=== PATIENT | male | born 1955 | race Caucasian/White ===

== ENCOUNTER 2017-02-20 19:44 | Observation (INO) | payer MEDICAID ==
--- NOTE | 2017-02-20 20:03 | C.PDOC ---
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 Patient denies fever, chills, shortness of breath, nausea, vomiting, upper/ lower extremity numbness/weakness. Time Seen by Provider: 02/20/17 20:02 Chief Complaint (Nursing): Chest Pain History Per: Patient History/Exam Limitations: no limitations Onset/Duration Of Symptoms: Hrs Current Symptoms Are (Timing): Still Present Context: Other Severity: Moderate Pain Scale Rating Of: 4 Quality: Dull, "Pain" Associated Symptoms: denies: Nausea, Dyspnea Modifying Factors: None Exacerbating Factors: None Alleviating Factors: None Recent travel outside of the [place]: No Additional History Per: Patient Past Medical History Reviewed: Historical Data, Nursing Documentation, Vital Signs Vital Signs: Last Vital Signs Temp 98 F 02/20/17 19:57 Pulse 60 02/20/17 21:16 Resp 16 02/20/17 21:16 BP 125/78 02/20/17 21:16 Pulse Ox 99 02/20/17 20:24 - Medical History PMH: Arthritis, Gastritis, HTN, Rheumatoid Arthritis Surgical History: Coronary Stent - [facility] Procedures CORONAR ARTERIOGR-2 CATH (01/30/02) LEFT HEART CARDIAC CATH (01/30/02) LT HEART ANGIOCARDIOGRAM (01/30/02) Family History: States: Unknown Family Hx - Social History Hx Alcohol Use: No Hx Substance Use: No - Immunization History Hx Tetanus Toxoid Vaccination: No Hx Influenza Vaccination: Yes Review Of Systems Constitutional: Positive for: Other (+elevated blood pressure ). Negative for: Fever, Chills Eyes: Negative for: Vision Change Cardiovascular: Positive for: Chest Pain Respiratory: Negative for: Cough, Shortness of Breath Gastrointestinal: Negative for: Nausea, Vomiting, Abdominal Pain Musculoskeletal: Negative for: Shoulder Pain, Arm Pain, Hand Pain Skin: Negative for: Rash, Lesions, Jaundice, Bruising Neurological: Negative for: Weakness, Numbness, Change in Speech, Confusion, Altered Mental Status, Dizziness Psych: Negative for: Anxiety Physical Exam - Physical Exam Appears: Non-toxic, No Acute Distress Skin: Warm, Dry Head: Atraumatic Eye(s): bilateral: Normal Inspection, PERRL, EOMI Oral Mucosa: Moist Neck: Supple Chest: Symmetrical, No Deformity, No Tenderness Cardiovascular: Rhythm Regular, No Murmur Respiratory: No Rales, No Rhonchi, No Wheezing Gastrointestinal/Abdominal: Soft, No Tenderness, Distention, No Guarding, No Rebound, Other (+obese ) Back: No Vertebral Tenderness, No Paraspinal Tenderness Extremity: Normal ROM, No Tenderness, Pedal Edema (trace), No Calf Tenderness, Capillary Refill (less than 2 seconds ), No Deformity, Other (+significant arthritic changes to hands bilaterally ) Extremity: Bilateral: Atraumatic Pulses: Left Dorsalis Pedis: Normal, Right Dorsalis Pedis: Normal Neurological/Psych: Oriented x3, Normal Speech, Normal Cognition Gait: Steady ED Course And Treatment - Laboratory Results Result Diagrams: 02/20/17 21:01 02/20/17 21:01 ECG: Interpreted By Me, Viewed By Me ECG Rhythm: Sinus Rhythm (68), Nonspecific Changes O2 Sat by Pulse Oximetry: 99 (on RA) Pulse Ox Interpretation: Normal - Radiology CXR: Interpreted by Me, Viewed By Me CXR Interpretation: Yes: Cardiomegaly. No: Infiltrates, Fracture Progress Note: cardiac work up, asa Disposition Discussed With DrBrooke: Albaro Drew Comment: accepted the pt on his service and took over the care at 9:35 PM Doctor Will See Patient In The: Hospital Counseled Patient/Family Regarding: Studies Performed, Diagnosis - Disposition Disposition: HOSPITALIZED Disposition Time: 20:03 Condition: FAIR - POA Present On Arrival: None - Clinical Impression Clinical Impression: Chest pain, Renal insufficiency - Scribe Statement The provider has reviewed the documentation as recorded by the Scribe (Mary Kat) Provider Attestation: All medical record entries made by the Scribe were at my direction and personally dictated by me. I have reviewed the chart and agree that the record accurately reflects my personal performance of the history, physical exam, medical decision making, and the department course for this patient. I have also personally directed, reviewed, and agree with the discharge instructions and disposition. Decision To Admit - Pt Status Changed To: Hospital Disposition Of: Observation - . Bed Request Type: Telemetry Patient Diagnosis: Chest pain
[2017-02-20] MEDS ORDERED: Aspirin 325 mg EC Tablets PO STA (20:05)
[2017-02-20] MEDS ORDERED: Aspirin 325 mg EC Tablets PO ONE (20:51)
[2017-02-20 21:06] LABS: BASO % 0.5 % (0.0-2.0); EOS # 0.1 K/uL (0.0-0.7); EOS % 2.2 % (0.0-4.0); HEMATOCRIT 33.8 % (35.0-51.0); LYMPH # 0.9 K/uL (1.0-4.3); LYMPH % 14.6 % (20.0-40.0); MEAN CELL VOLUME 88.2 fL (80.0-94.0); MEAN CORPUSCULAR HEMOGLOBIN 27.8 pg (27.0-31.0); MEAN CORPUSCULAR HGB CONC 31.5 g/dL (33.0-37.0); MEAN PLATELET VOLUME 7.8 fL (7.2-11.7); MONO # 0.6 K/uL (0.0-0.8); MONO % 8.7 % (0.0-10.0); RED CELL DISTRIBUTION WIDTH 18.1 % (11.5-14.5); WHITE BLOOD COUNT 6.4 K/uL (4.8-10.8)
[2017-02-20 21:12] LABS: POTASSIUM 4.7 mmol/L (3.6-5.2)
[2017-02-20 21:14] LABS: BILIRUBIN,TOTAL 0.4 mg/dL (0.2-1.3)
[2017-02-20 21:15] LABS: ALB/GLOB RATIO 1.1 (1.0-2.1); CALCIUM 8.3 mg/dl (8.6-10.4); TOTAL PROTEIN 7.1 g/dL (6.3-8.3)
[2017-02-20 21:27] LABS: TROPONIN I 0.014 ng/mL (0.00-0.120)
[2017-02-20] MEDS ORDERED: Sodium Chloride 0.9% 1,000 ML IV ONE (21:36)
--- NOTE | 2017-02-21 00:34 | CP.PCM.HP ---
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 Patient denies fever, chills, shortness of breath, nausea, vomiting, upper/ lower extremity numbness/weakness. Present on Admission - Present on Admission Any Indicators Present on Admission: No Review of Systems - Review of Systems Systems not reviewed;Unavailable: Acuity of Condition - Constitutional Constitutional: Fatigue, Lethargy, Malaise, Weakness - EENT Eyes: absent: As Per HPI, Blind Spots, Blurred Vision, Change in Vision, Decreased Night Vision, Diplopia, Discharge, Dry Eye, Exophthalmos, Floaters, Irritation, Itchy Eyes, Loss of Peripheral Vision, Pain, Photophobia, Requires Corrective Lenses, Sees Flashes, Spots in Vision, Tunnel Vision, Other Visual Disturbances, Loss of Vision, Other Ears: absent: As Per HPI, Decreased Hearing, Ear Discharge, Ear Pain, Tinnitus, Abnormal Hearing, Disequilibrium, Dizziness, Other Nose/Mouth/Throat: Nasal Congestion. absent: As Per HPI, Epistaxis, Nasal Discharge, Nasal Obstruction, Nasal Trauma, Nose Pain, Post Nasal Drip, Sinus Pain, Sinus Pressure, Bleeding Gums, Change in Voice, Dental Pain, Dry Mouth, Dysphagia, Halitosis, Hoarsness, Lip Swelling, Mouth Lesions, Mouth Pain, Odynophagia, Sore Throat, Throat Swelling, Tongue Swelling, Facial Pain, Neck Pain, Neck Mass, Other - Musculoskeletal Musculoskeletal: Abnormal Gait, Back Pain, Myalgias, Stiffness - Integumentary Integumentary: absent: As Per HPI, Acne, Alopecia, Bleeding Lesions, Change in Hair, Change in Nails, Change in Pigmentation, Changing Lesions, Dry Skin, Erythema, Furuncle, Hirsutism, Lesions, New Lesions, Non-Healing Lesions, Photosensitivity, Pruritus, Rash, Skin Pain, Skin Ulcer, Sores, Striae, Swelling , Unusual Bruising, Wounds, Jaundice, Other Past Patient History - Past Social History Smoking Status: Never Smoked - CARDIAC Hx Hypertension: Yes - ENDOCRINE/METABOLIC Hx Endocrine Disorders: Yes Hx Diabetes Mellitus Type 2: Yes - MUSCULOSKELETAL/RHEUMATOLOGICAL Hx Arthritis: Yes Hx Rheumatoid Arthritis: Yes - GASTROINTESTINAL Hx Gastritis: Yes - PSYCHIATRIC Hx Substance Use: No - SURGICAL HISTORY Hx Coronary Stent: Yes - ANESTHESIA Hx Anesthesia: Yes Hx Anesthesia Reactions: No Meds Home Medications: Home Medication List Medication Instructions Recorded Confirmed Type Methadone 38 mg PO DAILY tab 02/22/17 Rx Allergies/Adverse Reactions: Allergies Allergy/AdvReac Type Severity Reaction Status Date / Time No Known Allergies Allergy Verified 02/20/17 20:00 Physical Exam - Constitutional Appears: No Acute Distress, Agitated, Chronically Ill - Head Exam Head Exam: ATRAUMATIC, NORMAL INSPECTION, NORMOCEPHALIC - Eye Exam Eye Exam: Conjunctival injection - ENT Exam ENT Exam: Mucous Membranes Dry - Neck Exam Neck exam: Positive for: Normal Inspection - Respiratory Exam Respiratory Exam: Clear to Auscultation Bilateral, NORMAL BREATHING PATTERN - Cardiovascular Exam Cardiovascular Exam: REGULAR RHYTHM - GI/Abdominal Exam GI & Abdominal Exam: Normal Bowel Sounds, Soft. absent: Tenderness - Extremities Exam Additional comments: extensive joint abnormalities Results - Vital Signs Recent Vital Signs: Last Vital Signs Temp 98 F 02/20/17 19:57 Pulse 60 02/20/17 22:07 Resp 16 02/20/17 22:07 BP 133/81 02/20/17 22:07 Pulse Ox 99 02/20/17 21:35 - Labs Result Diagrams: 02/20/17 21:01 02/22/17 06:18 Labs: Laboratory Results - last 24 hr 02/21/17 00:02 POC Glucose (mg/dL) 89 Assessment & Plan (1) Atypical chest pain Status: Acute Comment: rule out ND. pt has previous multiple hospitalizations with same complain (2) Heroin abuse Status: Acute (3) Rheumatoid arthritis flare Status: Acute
[2017-02-21 00:54] LABS: RBC URINE 1 /hpf (0-3); URINE BILIRUBIN NEGATIVE (NEGATIVE); URINE BLOOD NEGATIVE (NEGATIVE); URINE COLOR Yellow (YELLOW); URINE GLUCOSE (UA) NORMAL (Normal); URINE KETONE NEGATIVE (NEGATIVE); URINE LEUKOCYTE ESTERASE NEG Leu/uL (Negative); URINE PROTEIN 2+ mg/dL (NEGATIVE); URINE UROBILINOGEN NORMAL mg/dL (0.2-1.0); WBC URINE 1 /hpf (0-5)
--- NOTE | 2017-02-21 09:38 | RAD ---
PROCEDURE: CHEST RADIOGRAPH, 1 VIEW HISTORY: chest pain COMPARISON: None available. FINDINGS: LUNGS: Mild to moderate venous congestion. Bibasilar airspace opacities. Linear radiopaque density projects over the left hope thorax. Clinical correlation. Biapical pleural thickening with upper lobe granulomatous changes. PLEURA: As above. CARDIOVASCULAR: Cardiomegaly. OSSEOUS STRUCTURES: No significant abnormalities. VISUALIZED UPPER ABDOMEN: Normal. OTHER FINDINGS: None. IMPRESSION: Mild to moderate venous congestion. Bibasilar airspace opacities. Linear radiopaque density projects over the left hope thorax. Clinical correlation. Biapical pleural thickening with upper lobe granulomatous changes.
[2017-02-21] MEDS: Enoxaparin 40 mg Syringe SC SCH (10:33)
[2017-02-21] MEDS: Sodium Chloride 0.9% 1,000 ML IV SCH ×2 (10:33→21:23)
[2017-02-21] MEDS ORDERED: ALOGLIPTIN BENZOATE PO SCH (15:45)
[2017-02-21] MEDS: Pantoprazole 40 mg EC Tab PO SCH (16:34)
[2017-02-21] MEDS: (Novolog) Insulin Aspart, Recombinant 100 u/ml 10 ml vial SC SCH ×2 (16:47→21:36)
[2017-02-22 06:34] LABS: CHLORIDE 106 mmol/L (98-107); POTASSIUM 4.3 mmol/L (3.6-5.2); SODIUM 142 mmol/L (132-148)
[2017-02-22 06:37] LABS: BLOOD UREA NITROGEN 30 mg/dL (9-20); CARBON DIOXIDE 25 mmol/L (22-30); GFR AFRICAN-AMERICAN > 60; GLUCOSE,RANDOM 77 mg/dL (75-110)
[2017-02-22] MEDS: (Novolog) Insulin Aspart, Recombinant 100 u/ml 10 ml vial SC SCH ×3 (08:36→17:05)
[2017-02-22] MEDS: Pantoprazole 40 mg EC Tab PO SCH (09:30)
[2017-02-22] MEDS: Enoxaparin 40 mg Syringe SC SCH (09:41)
--- NOTE | 2017-02-22 13:26 | CP.PCM.PN ---
Subjective - Date & Time of Evaluation Date of Evaluation: 02/22/17 Time of Evaluation: 12:35 - Subjective Subjective: Pt seen and examined today, chest pain resolved, denies any sob, palpitation, dizziness troponin x 3 - negative No overnight events recorded on monitor Objective - Vital Signs/Intake and Output Vital Signs (last 24 hours): Temp Pulse Resp BP Pulse Ox 98 F 70 17 154/89 H 96 02/22/17 08:00 02/22/17 08:00 02/22/17 08:00 02/22/17 09:32 02/22/17 08:00 Intake and Output: 02/22/17 02/22/17 06:59 18:59 Intake Total 1480 480 Output Total 800 500 Balance 680 -20 - Medications Medications: Current Medications Allopurinol (Zyloprim) 100 mg PO DAILY [facility] Last Admin: 02/22/17 13:00 Dose: 100 mg Aspirin (Aspirin Chewable) 81 mg PO DAILY [facility] Last Admin: 02/22/17 09:30 Dose: 81 mg Carvedilol (Coreg) 6.25 mg PO BID [facility] Last Admin: 02/22/17 09:30 Dose: 6.25 mg Enalapril Maleate (Vasotec) 20 mg PO DAILY [facility] Last Admin: 02/22/17 09:32 Dose: 20 mg Enoxaparin Sodium (Lovenox) 40 mg SC DAILY [facility] Last Admin: 02/22/17 09:41 Dose: 40 mg Folic Acid (Folic Acid) 1 mg PO DAILY [facility] Last Admin: 02/22/17 09:30 Dose: 1 mg Home Med (Alogliptin Benzoate [Alogliptin]) 12.5 mg PO DAILY [facility] Last Admin: 02/22/17 09:45 Dose: 12.5 mg Insulin Aspart (Novolog) 0 unit SC [facility] PRN Reason: Protocol Last Admin: 02/22/17 12:00 Dose: Not Given Methadone HCl (Methadone) 5 mg PO DAILY [facility] Last Admin: 02/22/17 09:31 Dose: 5 mg Methadone HCl (Methadone) 30 mg PO DAILY [facility] Last Admin: 02/22/17 09:30 Dose: 30 mg Methotrexate (Methotrexate) 2.5 mg PO QWK [facility] Pantoprazole Sodium (Protonix Ec Tab) 40 mg PO DAILY [facility] Last Admin: 02/22/17 09:30 Dose: 40 mg Rosuvastatin Calcium (Crestor) 10 mg PO HS [facility] Last Admin: 02/21/17 21:22 Dose: 10 mg - Labs Labs: 02/22/17 06:18 PT 11.3 SECONDS (9.7-12.2) 02/20/17 21:01 INR 1.0 02/20/17 21:01 APTT 27 SECONDS (21-34) 02/20/17 21:01 Assessment and Plan - Assessment and Plan (Free Text) Assessment: 61 yr old male admitted for chest pain Troponin x 3 - negative EKG- normal sinus rythum- no ST- T wave elevation vss- stable D/W Dr. Drew, stable for discharge home today and f/u with darlyn Magana and Dr. Rockwell office in 1 week Pt insatructed to returns to ED if symptoms returns
[2017-02-22 17:23] VITALS: BP 157/85; RESP 16; TEMP 98.5
[2017-02-22 17:31] VITALS: PULSE 74; O2SAT 96
--- NOTE | 2017-02-23 00:57 | CP.PCM.DIS ---
Provider - Provider Date of Admission: 02/20/17 21:33 Attending physician: Albaro Drew MD Time Spent in preparation of Discharge (in minutes): 30 Diagnosis - Discharge Diagnosis (1) Atypical chest pain Status: Acute (2) Heroin abuse Status: Acute (3) Rheumatoid arthritis flare Status: Acute Hospital Course - Lab Results Lab Results: Micro Results 02/21/17 09:54 Naris MRSA Culture (Admit) - Final MRSA NOT DETECTED Most Recent Lab Values WBC 6.4 K/uL (4.8-10.8) 02/20/17 21: RBC 3.83 Mil/uL (4.40-5.90) L 02/20/17 21:01 Hgb 10.6 g/dL (12.0-18.0) L 02/20/17 21:01 Hct 33.8 % (35.0-51.0) L 02/20/17 21:01 MCV 88.2 fL (80.0-94.0) 02/20/17 21:01 MCH 27.8 pg (27.0-31.0) 02/20/17 21:01 MCHC 31.5 g/dL (33.0-37.0) L 02/20/17 21:01 RDW 18.1 % (11.5-14.5) H 02/20/17 21:01 Plt Count 143 K/uL (130-400) 02/20/17 21:01 MPV 7.8 fL (7.2-11.7) 02/20/17 21:01 Neut % (Auto) 74.0 % (50.0-75.0) 02/20/17 21:01 Lymph % (Auto) 14.6 % (20.0-40.0) L 02/20/17 21:01 Randall % (Auto) 8.7 % (0.0-10.0) 02/20/17 21:01 Eos % (Auto) 2.2 % (0.0-4.0) 02/20/17 21:01 Baso % (Auto) 0.5 % (0.0-2.0) 02/20/17 21: Neut # 4.7 K/uL (1.8-7.0) 02/20/17 21: Lymph # 0.9 K/uL (1.0-4.3) L 02/20/17 21:01 Randall # 0.6 K/uL (0.0-0.8) 02/20/17 21:01 Eos # 0.1 K/uL (0.0-0.7) 02/20/17 21:01 Baso # 0.0 K/uL (0.0-0.2) 02/20/17 21:01 PT 11.3 SECONDS (9.7-12.2) 02/20/17 21:01 INR 1.0 02/20/17 21:01 APTT 27 SECONDS (21-34) 02/20/17 21:01 Sodium 142 mmol/L (132-148) 02/22/17 06:18 Potassium 4.3 mmol/L (3.6-5.2) 02/22/17 06:18 Chloride 106 mmol/L (98-107) 02/22/17 06:18 Carbon Dioxide 25 mmol/L (22-30) 02/22/17 06:18 Anion Gap 14 (10-20) 02/22/17 06:18 BUN 30 mg/dL (9-20) H 02/22/17 06:18 Creatinine 1.4 MG/DL (0.8-1.5) 02/22/17 06:18 Est GFR ( Amer) > 60 02/22/17 06:18 Est GFR (Non-Af Amer) 52 02/22/17 06:18 POC Glucose (mg/dL) 99 mg/dL (65-110) 02/22/17 16:16 Random Glucose 77 mg/dL (75-110) 02/22/17 06:18 Calcium 8.0 mg/dl (8.6-10.4) L 02/22/17 06:18 Total Bilirubin 0.4 mg/dL (0.2-1.3) 02/20/17 21:01 AST 25 U/L (17-59) 02/20/17 21:01 ALT 18 U/L (21-72) L 02/20/17 21:01 Alkaline Phosphatase 98 U/L (38-126) 02/20/17 21:01 Total Creatine Kinase 37 U/L (55-170) L 02/21/17 11:09 CK-MB (Mass) 0.89 ng/mL (0.0-3.38) 02/21/17 11:09 Troponin I 0.0140 ng/mL (0.00-0.120) 02/20/17 21:01 Troponin I, Quant < 0.0120 ng/mL (0.00-0.120) 02/21/17 11:09 NT-Pro-B Natriuret Pep 688 pg/mL (0-900) 02/20/17 21:01 Total Protein 7.1 g/dL (6.3-8.3) 02/20/17 21:01 Albumin 3.7 g/dL (3.5-5.0) 02/20/17 21:01 Globulin 3.4 gm/dL (2.2-3.9) 02/20/17 21:01 Albumin/Globulin Ratio 1.1 (1.0-2.1) 02/20/17 21:01 Urine Color Yellow (YELLOW) 02/20/17 20:05 Urine Clarity Clear (Clear) 02/20/17 20:05 Urine pH 7.0 (5.0-8.0) 02/20/17 20:05 Ur Specific Webb 1.014 (1.003-1.030) 02/20/17 20:05 Urine Protein 2+ mg/dL (NEGATIVE) H 02/20/17 20:05 Urine Glucose (UA) Normal mg/dL (Normal) 02/20/17 20:05 Urine Ketones Negative mg/dL (NEGATIVE) 02/20/17 20:05 Urine Blood Negative (NEGATIVE) 02/20/17 20:05 Urine Nitrate Negative (NEGATIVE) 02/20/17 20:05 Urine Bilirubin Negative (NEGATIVE) 02/20/17 20:05 Urine Urobilinogen Normal mg/dL (0.2-1.0) 02/20/17 20:05 Ur Leukocyte Esterase Neg Parrish/uL (Negative) 02/20/17 20:05 Urine WBC (Auto) 1 /hpf (0-5) 02/20/17 20:05 Urine RBC (Auto) 1 /hpf (0-3) 02/20/17 20:05 - Hospital Course Hospital Course: Pt seen and examined today, chest pain resolved, denies any sob, palpitation, dizziness troponin x 3 - negative No overnight events recorded on monitor pt is for discharged home Discharge Exam - Head Exam Head Exam: ATRAUMATIC, NORMAL INSPECTION, NORMOCEPHALIC - Eye Exam Eye Exam: EOMI, Normal appearance, PERRL Pupil Exam: NORMAL ACCOMODATION, PERRL - Respiratory Exam Respiratory Exam: Clear to PA & Lateral, NORMAL BREATHING PATTERN - Cardiovascular Exam Cardiovascular Exam: REGULAR RHYTHM, +S1, +S2 - GI/Abdominal Exam GI & Abdominal Exam: Normal Bowel Sounds Discharge Plan - Follow Up Plan Condition: FAIR Disposition: HOME/ ROUTINE Instructions: Chest Pain (DC), Hypertension (DC) Additional Instructions: F/u With Dr. Drew office in 1 week F/u with Dr. Rockwell march 01 Resume all home medications
--- NOTE | 2017-02-23 18:33 | CARD ---
APPROVED REPORT EKG Measurement Heart [id number] <Conclusion> Normal sinus rhythm Moderate voltage criteria for L AXIS DEVIATION Nonspecific T wave abnormality Abnormal ECG
== END 2017-02-22 19:39 | disposition home or self-care (01) ==
LOC: C.ER 19:44 → C.9E 21:33 → C.9I 02-21 07:31
PROVIDERS: ADMIT Internal Medicine; ATTEND Internal Medicine
DX: R07.89 Other chest pain (principal); I10 Essential (primary) hypertension; F11.10 Opioid abuse, uncomplicated; E11.9 Type 2 diabetes mellitus without complications
CPT/HCPCS: 71010; 80048; 80053; 81001; 82948; 83880; 84484; 85025; 85610; 85730; 87081; 93005; 99285; G0378; J1650; J7040

== ENCOUNTER 2017-05-10 12:18 | Observation (INO) | payer MEDICAID ==
[2017-05-10 12:33] VITALS: BMI 33.8
--- NOTE | 2017-05-10 12:41 | C.PDOC ---
History Of Present Illness 61 y/o male with hx of heart problems presents to ED with complaints of left flank and left sided chest pain since yesterday. Patient states ehe saw his PMD Dr. Drew yesterday and was given a medicated cream with no improvement which prompted his visit to ED today. Patient denies fever, chills, sob, n/v/d, urinary symptoms or any other complaints at this time. Time Seen by Provider: 05/10/17 12:22 Chief Complaint (Nursing): Abdominal Pain History Per: Patient History/Exam Limitations: no limitations Onset/Duration Of Symptoms: Days Current Symptoms Are (Timing): Still Present Radiation Of Pain To:: Chest, Flank Associated Symptoms: Chest Pain. denies: Fever, Chills, Nausea, Vomiting, Diarrhea, Urinary Symptoms Past Medical History Reviewed: Historical Data, Nursing Documentation, Vital Signs Vital Signs: Last Vital Signs Temp 97.8 F 05/10/17 16:15 Pulse 55 L 05/10/17 16:15 Resp 18 05/10/17 16:15 BP 154/88 H 05/10/17 17:19 Pulse Ox 96 05/10/17 15:38 - Medical History PMH: Arthritis, Gastritis, HTN, Kidney Stones, Rheumatoid Arthritis Surgical History: Coronary Stent - [facility] CORONAR ARTERIOGR-2 CATH (01/30/02) LEFT HEART CARDIAC CATH (01/30/02) LT HEART ANGIOCARDIOGRAM (01/30/02) Family History: States: Unknown Family Hx - Social History Hx Alcohol Use: No Hx Substance Use: No - Immunization History Hx Tetanus Toxoid Vaccination: No Hx Influenza Vaccination: Yes Review Of Systems Except As Marked, All Systems Reviewed And Found Negative. Constitutional: Negative for: Fever, Chills Cardiovascular: Positive for: Chest Pain Gastrointestinal: Negative for: Nausea, Vomiting, Diarrhea Genitourinary: Negative for: Dysuria, Frequency Physical Exam - Physical Exam Appears: Non-toxic, No Acute Distress Skin: Normal Color, Warm Head: Atraumatic, Normacephalic Oral Mucosa: Moist Cardiovascular: Rhythm Regular, No Murmur Respiratory: Normal Breath Sounds, No Rales, No Rhonchi, No Wheezing Gastrointestinal/Abdominal: Hernia (Ventral Hernia able to be reduced ), Other ( Obese Abdomen) Extremity: Pedal Edema (Lower extremities, As per patient has always had edema bilateral on lower extremities), Capillary Refill (<2 seconds), No Deformity Neurological/Psych: Oriented x3 ED Course And Treatment - Laboratory Results Result Diagrams: 05/10/17 13:05 05/10/17 13:05 Lab Interpretation: Abnormal ECG: Interpreted By Me ECG Rhythm: Sinus Rhythm ECG Interpretation: No Acute Changes Rate From EC O2 Sat by Pulse Oximetry: 96 (RA) Pulse Ox Interpretation: Normal - Radiology CXR: Interpreted by Me CXR Interpretation: Yes: No Acute Disease - CT Scan/US No standard instances Other Rad Studies (CT/US): Read By Radiologist, Radiology Report Reviewed CT/US Interpretation: COMPARISON: Comparison made with CT scan of the abdomen pelvis 11/02/2015. The. TECHNIQUE: Contiguous axial images of the abdomen and pe pelvis without oral or intravenous contrast material. Coronal and Sagittal reformats generated. This CT exam was performed using one or more of the following dose reduction techniques: Automated exposure control, adjustment of the mA and/or kV according to patient size, and/or use of iterative reconstruction technique. Radiation dose: Total exam DLP = 1287.49 mGy-cm. FINDINGS: LOWER THORAX: Lung bases are clear. . Minor bibasilar atelectasis. No evidence of effusion or basilar pneumothorax. There is a moderate size hiatal hernia in with wall thickening of the distal esophagus that could be due to protrusion of gastric mucosa. Possibility of esophagitis or other intrinsic/ invasive wall lesion including esophageal carcinoma not excluded. Clinical correlation recommended. Metallic surgical clips also seen adjacent to the EG junction and proximal fundal region which could be secondary to prior Braulio fundoplication. Clinical correlation with surgical history recommended. LIVER : The liver is upper limits of normal measuring approximately 17 cm in CC dimension. No obvious hepatic mass collection or calcification. No gross lesion or ductal dilatation. GALLBLADDER AND BILE DUCTS: The gallbladder is physiologically distended. No evidence of intraluminal gallbladder calculi. . PANCREAS: The pancreas appears slightly atrophic and fatty replaced. No evidence of pancreatic mass or collection. SPLEEN: Spleen is enlarged measuring over 16 cm in AP dimension. ADRENALS: No adrenal lesions. KIDNEYS AND URETERS: Re- demonstrated is a large elliptical shaped low-attenuation exophytic focus arising from lower pole right kidney that has increased in size. This probably represents renal cyst measuring approximately 10.7 x 7.4 x 5.3 cm. Multiple small additional low-attenuation foci seen both kidneys some of which are associate with calcifications either within the wall or adjacent on to the peripheral nick as well as nonobstructing renal calculi. . While some of these foci probably represent renal cysts the possibility of any solid lesion cannot be completely excluded. Consider followup on MRI of the kidneys to exclude any solid components/renal mass/renal cell carcinoma. No evidence of obstructive hydronephrosis. BLADDER: Urinary bladder is incompletely distended which may in part account for thick-walled appearance. Muscular hypertrophy presumably contributes. Possibility of cystitis or other intrinsic/ invasive wall lesion not excluded. REPRODUCTIVE: Prostate gland measures approximately 3.4 cm in transverse dimension. APPENDIX: What is felt to represent a normal appendix of best seen on coronal image number [id number]. No periappendiceal inflammatory changes are identified. The the. BOWEL: Evaluation of the bowel is limited due to the lack of oral contrast. The stomach is incompletely distended. Visualized loops of small bowel exhibit normal contour and caliber. No evidence acute mechanical small bowel obstruction. Moderate amount of stool seen within the cecum and ascending as well as transverse colon and to a lesser degree remaining colon consistent with mild fecal retention/constipation. PERITONEUM: No gross free intraperitoneal air. There is a moderate-size ventral wall hernia that does contain mesenteric fat. There is also a smaller smaller of fat containing umbilical hernia. LYMPH NODES: No significant/bulky adenopathy. VASCULATURE: No evidence of abdominal aortic or iliac artery aneurysms. BONES: Multilevel degenerative spondylosis of the lower thoracic and lumbar spine. Slight anterior subluxation of L4 over L5 likely due to bilateral spondylolysis. ORIF changes right hip again noted. OTHER FINDINGS: None. IMPRESSION: Moderate size hiatal hernia again noted. Wall thickening of the distal esophagus could be due to protrusion gastric mucosa however esophagitis or other intrinsic/invasive wall lesion including esophageal carcinoma not excluded. Splenomegaly. Bladder wall thickening likely due to underdistention and muscular hypertrophy however the possibility of cystitis or other intrinsic/invasive wall lesion not excluded. Moderate ventral wall hernia containing mesenteric fat. Large exophytic renal cyst lower pole right kidney has increased in size. Additional multiple low-attenuation renal lesions likely representing cysts some of which are associated with calcifications and probably adjacent nonobstructing renal calculi however some of the lesions are indeterminate and the possibility of any solid components cannot be excluded. Consider followup MRI of the renal kidneys to exclude any solid components/renal mass. Findings consistent with constipation. Reassessment Condition: Unchanged - Physician Consult Information Physician Contacted: Albaro Drew Outcome Of Conversation: tele-Obs Medical Decision Making Medical Decision Making: Plan: * CT w/o contrast * Cardiac lab work up Disposition Discussed With : Albaro Drew Doctor Will See Patient In The: Hospital Counseled Patient/Family Regarding: Studies Performed, Diagnosis - Disposition Disposition: HOSPITALIZED Disposition Time: 14:15 Condition: STABLE - POA Present On Arrival: None - Clinical Impression Clinical Impression: Low back pain, Chest pain - Scribe Statement The provider has reviewed the documentation as recorded by the Anaibconnie Unger All medical record entries made by the Anaibconnie were at my direction and personally dictated by me. I have reviewed the chart and agree that the record accurately reflects my personal performance of the history, physical exam, medical decision making, and the department course for this patient. I have also personally directed, reviewed, and agree with the discharge instructions and disposition.
[2017-05-10 13:13] LABS: BASO % 0.4 % (0.0-2.0); EOS # 0.2 K/uL (0.0-0.7); HEMOGLOBIN 10.6 g/dL (12.0-18.0); LYMPH # 0.8 K/uL (1.0-4.3); LYMPH % 9.9 % (20.0-40.0); MEAN CELL VOLUME 87.2 fL (80.0-94.0); MEAN CORPUSCULAR HEMOGLOBIN 27.6 pg (27.0-31.0); MEAN CORPUSCULAR HGB CONC 31.6 g/dL (33.0-37.0); MEAN PLATELET VOLUME 7.7 fL (7.2-11.7); MONO # 0.5 K/uL (0.0-0.8); MONO % 6.5 % (0.0-10.0); NEUT # 6.4 K/uL (1.8-7.0); NEUT % 81.2 % (50.0-75.0); NRBC % 0.2 % (0.0-2.0); PLATELET COUNT 128 K/uL (130-400); RBC 3.85 Mil/uL (4.40-5.90); RED CELL DISTRIBUTION WIDTH 16.3 % (11.5-14.5); WHITE BLOOD COUNT 7.9 K/uL (4.8-10.8)
[2017-05-10 13:16] LABS: ALBUMIN 3.4 g/dL (3.5-5.0)
[2017-05-10 13:19] LABS: GFR AFRICAN-AMERICAN 50; GFR NON-AFRICAN AMERICAN 41
[2017-05-10 13:20] LABS: ALT/SGPT 26 U/L (21-72); AST/SGOT 16 U/L (17-59); BLOOD UREA NITROGEN 33 mg/dL (9-20); CALCIUM 8.3 mg/dl (8.6-10.4); LIPASE 122 U/L (23-300)
[2017-05-10 13:29] LABS: B-TYPE NATRIURETIC PEPTIDE 613 pg/mL (0-900); CK-MB 1.66 ng/mL (0.0-3.38)
--- NOTE | 2017-05-10 13:29 | RAD ---
PROCEDURE: CHEST RADIOGRAPH, 1 VIEW HISTORY: Shortness of breath COMPARISON: 02/20/2017. FINDINGS: LUNGS: The lungs are well inflated and clear. PLEURA: No pneumothorax or pleural fluid seen. CARDIOVASCULAR: Normal. OSSEOUS STRUCTURES: No significant abnormalities. VISUALIZED UPPER ABDOMEN: Normal. OTHER FINDINGS: None. IMPRESSION: No active pulmonary disease.
[2017-05-10 13:33] LABS: ANISOCYTOSIS SLIGHT; EOSINOPHIL 2 % (0-4); LYMPHOCYTE 15 % (20-40); MONOCYTE 7 % (0-10); NEUTROPHIL 76 % (50-75); PLATELET ESTIMATE SLIGHTLY DECREASED (NORMAL); TOTAL CELLS COUNTED 100
[2017-05-10 13:34] LABS: HYPOCHROMIC SLIGHT
--- NOTE | 2017-05-10 15:25 | CT ---
PROCEDURE: CT abdomen and pelvis dated HISTORY: Pain COMPARISON: Comparison made with CT scan of the abdomen pelvis 11/02/2015. The TECHNIQUE: Contiguous axial images of the abdomen and pe pelvis without oral or intravenous contrast material. Coronal and Sagittal reformats generated. This CT exam was performed using one or more of the following dose reduction techniques: Automated exposure control, adjustment of the mA and/or kV according to patient size, and/or use of iterative reconstruction technique. Radiation dose: Total exam DLP = 1287.49 mGy-cm. FINDINGS: LOWER THORAX: Lung bases are clear. . Minor bibasilar atelectasis. No evidence of effusion or basilar pneumothorax. There is a moderate size hiatal hernia in with wall thickening of the distal esophagus that could be due to protrusion of gastric mucosa. Possibility of esophagitis or other intrinsic/invasive wall lesion including esophageal carcinoma not excluded. Clinical correlation recommended. Metallic surgical clips also seen adjacent to the EG junction and proximal fundal region which could be secondary to prior Braulio fundoplication. Clinical correlation with surgical history recommended. LIVER: The liver is upper limits of normal measuring approximately 17 cm in CC dimension. No obvious hepatic mass collection or calcification. No gross lesion or ductal dilatation. GALLBLADDER AND BILE DUCTS: The gallbladder is physiologically distended. No evidence of intraluminal gallbladder calculi. . PANCREAS: The pancreas appears slightly atrophic and fatty replaced. No evidence of pancreatic mass or collection. SPLEEN: Spleen is enlarged measuring over 16 cm in AP dimension. ADRENALS: No adrenal lesions. KIDNEYS AND URETERS: Re- demonstrated is a large elliptical shaped low-attenuation exophytic focus arising from lower pole right kidney that has increased in size. This probably represents renal cyst measuring approximately 10.7 x 7.4 x 5.3 cm. Multiple small additional low-attenuation foci seen both kidneys some of which are associate with calcifications either within the wall or adjacent on to the peripheral nick as well as nonobstructing renal calculi. . While some of these foci probably represent renal cysts the possibility of any solid lesion cannot be completely excluded. Consider followup on MRI of the kidneys to exclude any solid components/renal mass/renal cell carcinoma. No evidence of obstructive hydronephrosis. BLADDER: Urinary bladder is incompletely distended which may in part account for thick-walled appearance. Muscular hypertrophy presumably contributes. Possibility of cystitis or other intrinsic/ invasive wall lesion not excluded. REPRODUCTIVE: Prostate gland measures approximately 3.4 cm in transverse dimension. APPENDIX: What is felt to represent a normal appendix of best seen on coronal image number [id number]. No periappendiceal inflammatory changes are identified. The the BOWEL: Evaluation of the bowel is limited due to the lack of oral contrast. The stomach is incompletely distended. Visualized loops of small bowel exhibit normal contour and caliber. No evidence acute mechanical small bowel obstruction. Moderate amount of stool seen within the cecum and ascending as well as transverse colon and to a lesser degree remaining colon consistent with mild fecal retention/constipation. PERITONEUM: No gross free intraperitoneal air. There is a moderate-size ventral wall hernia that does contain mesenteric fat. There is also a smaller smaller of fat containing umbilical hernia LYMPH NODES: No significant/bulky adenopathy. VASCULATURE: No evidence of abdominal aortic or iliac artery aneurysms. BONES: Multilevel degenerative spondylosis of the lower thoracic and lumbar spine. Slight anterior subluxation of L4 over L5 likely due to bilateral spondylolysis ORIF changes right hip again noted OTHER FINDINGS: None. IMPRESSION: Moderate size hiatal hernia again noted. Wall thickening of the distal esophagus could be due to protrusion gastric mucosa however esophagitis or other intrinsic/invasive wall lesion including esophageal carcinoma not excluded. Splenomegaly. Bladder wall thickening likely due to underdistention and muscular hypertrophy however the possibility of cystitis or other intrinsic/invasive wall lesion not excluded. Moderate ventral wall hernia containing mesenteric fat. Large exophytic renal cyst lower pole right kidney has increased in size. Additional multiple low-attenuation renal lesions likely representing cysts some of which are associated with calcifications and probably adjacent nonobstructing renal calculi however some of the lesions are indeterminate and the possibility of any solid components cannot be excluded. Consider followup MRI of the renal kidneys to exclude any solid components/renal mass. Findings consistent with constipation.
[2017-05-10 15:33] LABS: URINE BACTERIA RARE (<OCC); URINE BILIRUBIN NEGATIVE (NEGATIVE); URINE BLOOD NEGATIVE (NEGATIVE); URINE CLARITY Clear (Clear); URINE COLOR Yellow (YELLOW); URINE GLUCOSE (UA) NORMAL (Normal); URINE LEUKOCYTE ESTERASE NEG Leu/uL (Negative); URINE NITRATE NEGATIVE (NEGATIVE); URINE PROTEIN 2+ mg/dL (NEGATIVE); URINE UROBILINOGEN NORMAL mg/dL (0.2-1.0)
[2017-05-10] MEDS ORDERED: Albuterol HFA 90 mcg/actuation (8 g) IH PRN (16:16)
[2017-05-10] MEDS: (Novolog) Insulin Aspart, Recombinant 100 u/ml 10 ml vial SC SCH ×2 (16:48→21:59)
[2017-05-10] MEDS: POLYETHYLENE GLYCOL 3350 17 GM/Dose PACKET PO SCH (17:18)
--- NOTE | 2017-05-10 22:49 | CP.PCM.HP ---
History of Present Illness - History of Present Illness History of Present Illness: Chief complain: chest pain, back pain 61 y/o male with hx of drug abuse on methadone,HTN, morbid obesity, heart problems presents to ED with complaints of left flank and left sided chest pain since yesterday. pt saw me yesterday was given treatment , no improvement which prompted his visit to ED today. Patient denies fever, chills, sob, n/v/d, urinary symptoms or any other complaints at this time. Present on Admission - Present on Admission Any Indicators Present on Admission: Yes Review of Systems - Constitutional Constitutional: Fatigue, Lethargy, Malaise - EENT Eyes: absent: As Per HPI, Blind Spots, Blurred Vision, Change in Vision, Decreased Night Vision, Diplopia, Discharge, Dry Eye, Exophthalmos, Floaters, Irritation, Itchy Eyes, Loss of Peripheral Vision, Pain, Photophobia, Requires Corrective Lenses, Sees Flashes, Spots in Vision, Tunnel Vision, Other Visual Disturbances, Loss of Vision, Other Ears: absent: As Per HPI, Decreased Hearing, Ear Discharge, Ear Pain, Tinnitus, Abnormal Hearing, Disequilibrium, Dizziness, Other Nose/Mouth/Throat: absent: As Per HPI, Epistaxis, Nasal Congestion, Nasal Discharge, Nasal Obstruction, Nasal Trauma, Nose Pain, Post Nasal Drip, Sinus Pain, Sinus Pressure, Bleeding Gums, Change in Voice, Dental Pain, Dry Mouth, Dysphagia, Halitosis, Hoarsness, Lip Swelling, Mouth Lesions, Mouth Pain, Odynophagia, Sore Throat, Throat Swelling, Tongue Swelling, Facial Pain, Neck Pain, Neck Mass, Other - Cardiovascular Cardiovascular: Chest Pain, Diaphoresis, Dyspnea, Dyspnea on Exertion - Gastrointestinal Gastrointestinal: absent: As Per HPI, Abdominal Pain, Belching, Bloating, Change in Bowel Habits, Change in Stool Character, Coffee Ground Emesis, Constipation, Cramping, Diarrhea, Dyspepsia, Dysphagia, Early Satiety, Excessive Flatus, Fecal Incontinence, Heartburn, Hematemesis, Hematochezia, Loose Stools, Melena, Nausea, Odynophagia, Temesmus, Vomiting, Other - Genitourinary Genitourinary: Flank Pain - Musculoskeletal Musculoskeletal: Back Pain Past Patient History - Past Medical History & Family History Past Medical History?: Yes - Past Social History Smoking Status: Never Smoked - CARDIAC Hx Hypertension: Yes - PULMONARY Hx Respiratory Disorders: Yes Hx Asthma: Yes - NEUROLOGICAL Hx Neurological Disorder: No - HEENT Hx HEENT Problems: No - RENAL Hx Kidney Stones: Yes - ENDOCRINE/METABOLIC Hx Endocrine Disorders: Yes Hx Diabetes Mellitus Type 2: Yes - HEMATOLOGICAL/ONCOLOGICAL Hx Hepatitis C: Yes (1999) - INTEGUMENTARY Hx Dermatological Problems: No - MUSCULOSKELETAL/RHEUMATOLOGICAL Hx Arthritis: Yes Hx Falls: No Hx Rheumatoid Arthritis: Yes - GASTROINTESTINAL Hx Gastritis: Yes - GENITOURINARY/GYNECOLOGICAL Hx Genitourinary Disorders: No - PSYCHIATRIC Hx Substance Use: No - SURGICAL HISTORY Hx Coronary Stent: Yes - ANESTHESIA Hx Anesthesia: Yes Hx Anesthesia Reactions: No Meds Allergies/Adverse Reactions: Allergies Allergy/AdvReac Type Severity Reaction Status Date / Time No Known Allergies Allergy Verified 02/20/17 20:00 Physical Exam - Constitutional Appears: No Acute Distress - Eye Exam Eye Exam: EOMI, Normal appearance, PERRL Pupil Exam: NORMAL ACCOMODATION, PERRL - Respiratory Exam Respiratory Exam: Clear to Auscultation Bilateral, NORMAL BREATHING PATTERN - Cardiovascular Exam Cardiovascular Exam: REGULAR RHYTHM - GI/Abdominal Exam GI & Abdominal Exam: Normal Bowel Sounds, Soft. absent: Tenderness - Back Exam Additional comments: positive lordosis of spine ROM: decreased pain on bending lower spinal tenderness Results - Vital Signs Recent Vital Signs: Last Vital Signs Temp 97.8 F 05/10/17 16:15 Pulse 68 05/10/17 16:15 Resp 18 05/10/17 16:15 BP 154/88 H 05/10/17 17:19 Pulse Ox 96 05/10/17 17:54 - Labs Result Diagrams: 05/10/17 13:05 05/11/17 04:56 Labs: Laboratory Results - last 24 hr 05/10/17 05/10/17 05/10/17 15:00 16:43 20:16 POC Glucose (mg/dL) 78 Troponin I < 0.0120 Urine Color Yellow Urine Clarity Clear Urine pH 5.0 Ur Specific [place] 1.015 Urine Protein 2+ H Urine Glucose (UA) Normal Urine Ketones Negative Urine Blood Negative Urine Nitrate Negative Urine Bilirubin Negative Urine Urobilinogen Normal Ur Leukocyte Esterase Neg Urine WBC (Auto) 2 Urine RBC (Auto) < 1 Urine Bacteria Rare 05/10/17 21:13 POC Glucose (mg/dL) 74 Troponin I Urine Color Urine Clarity Urine pH Ur Specific [place] Urine Protein Urine Glucose (UA) Urine Ketones Urine Blood Urine Nitrate Urine Bilirubin Urine Urobilinogen Ur Leukocyte Esterase Urine WBC (Auto) Urine RBC (Auto) Urine Bacteria Assessment & Plan (1) Chest pain Assessment and Plan: Rule out CA Status: Acute (2) Low back pain Status: Acute (3) Abdominal pain Status: Acute (4) Atypical chest pain Status: Acute (5) Heroin abuse Status: Acute
[2017-05-11 00:35] VITALS: RESP 20
[2017-05-11 05:10] LABS: BLOOD UREA NITROGEN 31 mg/dL (9-20); GFR AFRICAN-AMERICAN 53; GFR NON-AFRICAN AMERICAN 44
[2017-05-11 05:11] LABS: CALCIUM 7.9 mg/dl (8.6-10.4); HDL CHOLESTEROL 28 mg/dL (30-70)
[2017-05-11 05:20] LABS: CK-MB 1.01 ng/mL (0.0-3.38)
[2017-05-11 05:22] LABS: LDL CHOLESTEROL 73 mg/dL (0-129)
[2017-05-11] MEDS: (Novolog) Insulin Aspart, Recombinant 100 u/ml 10 ml vial SC SCH ×3 (07:41→17:08)
[2017-05-11 08:39] VITALS: O2SAT 96
[2017-05-11] MEDS: POLYETHYLENE GLYCOL 3350 17 GM/Dose PACKET PO SCH (09:39)
[2017-05-11] MEDS ORDERED: Fluticasone-Salmeterol 250-50mcg Diskus IH SCH (10:00)
[2017-05-11] MEDS ORDERED: Multiple Vitamins Tab PO SCH (10:00)
[2017-05-11] MEDS ORDERED: Pantoprazole 40 mg EC Tab PO SCH (10:00)
[2017-05-11] MEDS ORDERED: MELOXICAM PO SCH (10:00)
[2017-05-11 15:59] VITALS: PULSE 65
--- NOTE | 2017-05-11 16:29 | US ---
PROCEDURE: Ultrasound of the Kidneys HISTORY: r/o cyst vs mass COMPARISON: CT abdomen and pelvis without contrast 05/10/2017. TECHNIQUE: Sonogram of the kidneys. FINDINGS: RIGHT KIDNEY: Measures: 11.2 x 6.4 x 5.6 cm. Normal in size, contour and echogenicity. No stone, solid mass lesion or hydronephrosis visualized. Multiple right renal cysts are present. The largest is exophytic off the lower pole measuring 10.2 x 7.9 x 6.7 cm. Nonobstructing right renal calculi are also present. Findings have been mentioned on the prior CT report. No one particular right renal cyst with mural solid component appreciated -evaluating for this is less sensitive than with contrast enhanced CT or MR LEFT KIDNEY: Measures: 13.8 x 6.4 x 6.2 cm. Normal in size, contour and echogenicity. No stone, solid mass lesion or hydronephrosis visualized. Mid to lower pole renal cyst and 4.8 x 1.9 x 3.4 cm. Nonobstructing left renal calculi also present OTHER FINDINGS: Calcifications in both kidney vary between small and large. No hydronephrosis appreciated IMPRESSION: Bilateral renal cysts -the largest is exophytic off the right lower renal pole measuring up to 10 cm. Bilateral nonobstructing renal calculi which vary between small and large. Some calculi intimately related with renal cysts. This exam is limited/insensitive for evaluating for any potential solid enhancing mural neoplastic nodules. No hydronephrosis
--- NOTE | 2017-05-11 16:37 | CP.PCM.PN ---
Subjective - Date & Time of Evaluation Date of Evaluation: 05/11/17 Time of Evaluation: 20:40 - Subjective Subjective: Pt seen and evaluated, charts and labs reviewed is improving Objective - Vital Signs/Intake and Output Vital Signs (last 24 hours): Temp Pulse Resp BP Pulse Ox 98.5 F 65 20 186/108 H 96 05/11/17 08:38 05/11/17 15:57 05/11/17 08:38 05/11/17 09:38 05/11/17 14:53 Intake and Output: 05/11/17 05/11/17 06:59 18:59 Intake Total 240 300 Output Total 2625 Balance 240 -2325 - Medications Medications: Current Medications Acetaminophen (Tylenol 325mg Tab) 650 mg PO Q6 PRN PRN Reason: Pain, moderate (4-7) Albuterol (Ventolin Hfa 90 Mcg/Actuation (8 G)) 2 puff IH RQ6 PRN PRN Reason: Wheezing Allopurinol (Zyloprim) 100 mg PO DAILY [facility] Last Admin: 05/11/17 09:35 Dose: 100 mg Aspirin (Ecotrin) 81 mg PO DAILY [facility] Last Admin: 05/11/17 09:36 Dose: 81 mg Carvedilol (Coreg) 12.5 mg PO BID [facility] Last Admin: 05/11/17 09:30 Dose: 12.5 mg Ergocalciferol (Drisdol 50,000 Intl Units Cap) 1 cap PO QWK [facility] Folic Acid (Folic Acid) 1 mg PO DAILY [facility] Last Admin: 05/11/17 09:36 Dose: 1 mg Furosemide (Lasix) 40 mg IVP DAILY [facility] Last Admin: 05/11/17 09:38 Dose: 40 mg Heparin Sodium (Porcine) (Heparin) 5,000 units SC Q12 [facility] Last Admin: 05/11/17 09:36 Dose: 5,000 units Insulin Aspart (Novolog) 0 unit SC ACHS [facility] PRN Reason: Protocol Last Admin: 05/11/17 12:01 Dose: Not Given Lisinopril (Zestril) 5 mg PO DAILY [facility] Last Admin: 05/11/17 09:36 Dose: 5 mg Methadone HCl (Methadone) 30 mg PO DAILY [facility] Last Admin: 05/11/17 09:35 Dose: 30 mg Methadone HCl (Methadone) 5 mg PO DAILY [facility] Last Admin: 05/11/17 09:35 Dose: 5 mg Multivitamins (Hexavitamin) 1 tab PO DAILY [facility] Last Admin: 05/11/17 09:35 Dose: 1 tab Pantoprazole Sodium (Protonix Ec Tab) 40 mg PO DAILY [facility] Last Admin: 05/11/17 09:36 Dose: 40 mg Pneumococcal Polyvalent Vaccine (Pneumovax 23 Vaccine) 0.5 ml IM .ONCE ONE Stop: 05/12/17 10:01 Polyethylene Glycol (Miralax) 17 gm PO DAILY [facility] Last Admin: 05/11/17 09:39 Dose: Not Given Prednisone (Prednisone Tab) 5 mg PO DAILY [facility] Last Admin: 05/11/17 09:36 Dose: 5 mg Fluticasone/Salmeterol (Advair Diskus 250/50) 1 puff IH RQD [facility] Last Admin: 05/11/17 10:15 Dose: 1 puff - Labs Labs: 05/11/17 04:56 Assessment and Plan (1) Chest pain Status: Acute (2) Low back pain Status: Acute (3) Abdominal pain Status: Acute (4) Atypical chest pain Status: Acute (5) Heroin abuse Status: Acute
[2017-05-11 17:06] VITALS: TEMP 98.2
--- NOTE | 2017-05-11 17:06 | CP.PCM.PN ---
Subjective - Date & Time of Evaluation Date of Evaluation: 05/11/17 Time of Evaluation: 11:25 - Subjective Subjective: Pt seen an dexamined today . denies any abdominal pain, N/V/D , c/o left side chest pain , incr. inspiration and cough , non radiating , no other associated symptoms . Pin reproducible troponin x 3 - negative no overnight events recorded on monitor no event reported by RN Objective - Vital Signs/Intake and Output Vital Signs (last 24 hours): Temp Pulse Resp BP Pulse Ox 98.5 F 65 20 186/108 H 96 05/11/17 08:38 05/11/17 15:57 05/11/17 08:38 05/11/17 09:38 05/11/17 14:53 Intake and Output: 05/11/17 05/11/17 06:59 18:59 Intake Total 240 300 Output Total 2625 Balance 240 -2325 - Medications Medications: Current Medications Acetaminophen (Tylenol 325mg Tab) 650 mg PO Q6 PRN PRN Reason: Pain, moderate (4-7) Albuterol (Ventolin Hfa 90 Mcg/Actuation (8 G)) 2 puff IH RQ6 PRN PRN Reason: Wheezing Allopurinol (Zyloprim) 100 mg PO DAILY [facility] Last Admin: 05/11/17 09:35 Dose: 100 mg Aspirin (Ecotrin) 81 mg PO DAILY [facility] Last Admin: 05/11/17 09:36 Dose: 81 mg Carvedilol (Coreg) 12.5 mg PO BID [facility] Last Admin: 05/11/17 09:30 Dose: 12.5 mg Ergocalciferol (Drisdol 50,000 Intl Units Cap) 1 cap PO QWK [facility] Folic Acid (Folic Acid) 1 mg PO DAILY [facility] Last Admin: 05/11/17 09:36 Dose: 1 mg Furosemide (Lasix) 40 mg IVP DAILY [facility] Last Admin: 05/11/17 09:38 Dose: 40 mg Heparin Sodium (Porcine) (Heparin) 5,000 units SC Q12 [facility] Last Admin: 05/11/17 09:36 Dose: 5,000 units Insulin Aspart (Novolog) 0 unit SC ACHS [facility] PRN Reason: Protocol Last Admin: 05/11/17 12:01 Dose: Not Given Lisinopril (Zestril) 5 mg PO DAILY [facility] Last Admin: 05/11/17 09:36 Dose: 5 mg Methadone HCl (Methadone) 30 mg PO DAILY [facility] Last Admin: 05/11/17 09:35 Dose: 30 mg Methadone HCl (Methadone) 5 mg PO DAILY [facility] Last Admin: 05/11/17 09:35 Dose: 5 mg Multivitamins (Hexavitamin) 1 tab PO DAILY [facility] Last Admin: 05/11/17 09:35 Dose: 1 tab Pantoprazole Sodium (Protonix Ec Tab) 40 mg PO DAILY [facility] Last Admin: 05/11/17 09:36 Dose: 40 mg Pneumococcal Polyvalent Vaccine (Pneumovax 23 Vaccine) 0.5 ml IM .ONCE ONE Stop: 05/12/17 10:01 Polyethylene Glycol (Miralax) 17 gm PO DAILY [facility] Last Admin: 05/11/17 09:39 Dose: Not Given Prednisone (Prednisone Tab) 5 mg PO DAILY [facility] Last Admin: 05/11/17 09:36 Dose: 5 mg Fluticasone/Salmeterol (Advair Diskus 250/50) 1 puff IH RQD [facility] Last Admin: 05/11/17 10:15 Dose: 1 puff - Labs Labs: 05/11/17 04:56 - Constitutional Appears: Well, No Acute Distress - Respiratory Exam Respiratory Exam: Clear to Ausculation Bilateral, NORMAL BREATHING PATTERN - Cardiovascular Exam Cardiovascular Exam: REGULAR RHYTHM, +S1, +S2 - Neurological Exam Neurological Exam: Alert, Awake, Oriented x3 Assessment and Plan - Assessment and Plan (Free Text) Assessment: A/P 61 yr old mal e admitted for left sided chest pain troponin x 3 - negative ct- chest negative for -PE US kidney- b/l non obstructing renal calculi and b/l renal cyst D/W with Dr. gardiner, stable for discharge home today and f/u with his office in 1 week Discharge instructions discussed with patient , who understands aand agrees wiht plan Pt instructed to returns to ED if symptoms returns
[2017-05-11 17:35] VITALS: BP 142/82
--- NOTE | 2017-05-11 23:00 | CP.PCM.DIS ---
Provider - Provider Date of Admission: 05/10/17 13:57 Attending physician: Albaro Drew MD Time Spent in preparation of Discharge (in minutes): 36 Diagnosis - Discharge Diagnosis (1) Chest pain Status: Acute (2) Low back pain Status: Acute (3) Abdominal pain Status: Acute (4) Atypical chest pain Status: Acute (5) Heroin abuse Status: Acute Hospital Course - Lab Results Lab Results: Most Recent Lab Values WBC 7.9 K/uL (4.8-10.8) 05/10/17 13:05 RBC 3.85 Mil/uL (4.40-5.90) L 05/10/17 13:05 Hgb 10.6 g/dL (12.0-18.0) L 05/10/17 13:05 Hct 33.6 % (35.0-51.0) L 05/10/17 13:05 MCV 87.2 fL (80.0-94.0) 05/10/17 13:05 MCH 27.6 pg (27.0-31.0) 05/10/17 13:05 MCHC 31.6 g/dL (33.0-37.0) L 05/10/17 13:05 RDW 16.3 % (11.5-14.5) H 05/10/17 13:05 Plt Count 128 K/uL (130-400) L 05/10/17 13:05 MPV 7.7 fL (7.2-11.7) 05/10/17 13:05 Neut % (Auto) 81.2 % (50.0-75.0) H 05/10/17 13:05 Lymph % (Auto) 9.9 % (20.0-40.0) L 05/10/17 13:05 Toombs % (Auto) 6.5 % (0.0-10.0) 05/10/17 13:05 Eos % (Auto) 2.0 % (0.0-4.0) 05/10/17 13:05 Baso % (Auto) 0.4 % (0.0-2.0) 05/10/17 13:05 Neut # 6.4 K/uL (1.8-7.0) 05/10/17 13:05 Lymph # 0.8 K/uL (1.0-4.3) L 05/10/17 13:05 Toombs # 0.5 K/uL (0.0-0.8) 05/10/17 13:05 Eos # 0.2 K/uL (0.0-0.7) 05/10/17 13:05 Baso # 0.0 K/uL (0.0-0.2) 05/10/17 13:05 Neutrophils % (Manual) 76 % (50-75) H 05/10/17 13:05 Lymphocytes % (Manual) 15 % (20-40) L 05/10/17 13:05 Monocytes % (Manual) 7 % (0-10) 05/10/17 13:05 Eosinophils % (Manual) 2 % (0-4) 05/10/17 13:05 Platelet Estimate Slightly decreased (NORMAL) L 05/10/17 13:05 Hypochromasia (manual) Slight 05/10/17 13:05 Anisocytosis (manual) Slight 05/10/17 13:05 Sodium 140 mmol/L (132-148) 05/11/17 04:56 Potassium 4.4 mmol/L (3.6-5.2) 05/11/17 04:56 Chloride 105 mmol/L (98-107) 05/11/17 04:56 Carbon Dioxide 30 mmol/L (22-30) 05/11/17 04:56 Anion Gap 11 (10-20) 05/11/17 04:56 BUN 31 mg/dL (9-20) H 05/11/17 04:56 Creatinine 1.6 MG/DL (0.8-1.5) H 05/11/17 04:56 Est GFR ( Amer) 53 05/11/17 04:56 Est GFR (Non-Af Amer) 44 05/11/17 04:56 POC Glucose (mg/dL) 96 mg/dL (65-110) 05/11/17 11:39 Random Glucose 88 mg/dL (75-110) 05/11/17 04:56 Calcium 7.9 mg/dl (8.6-10.4) L 05/11/17 04:56 Total Bilirubin 0.6 mg/dL (0.2-1.3) 05/10/17 13:05 AST 16 U/L (17-59) L D 05/10/17 13:05 ALT 26 U/L (21-72) 05/10/17 13:05 Alkaline Phosphatase 117 U/L (38-126) 05/10/17 13:05 Total Creatine Kinase 40 U/L (55-170) L 05/11/17 04:56 CK-MB (Mass) 1.01 ng/mL (0.0-3.38) 05/11/17 04:56 Troponin I < 0.0120 ng/mL (0.00-0.120) 05/10/17 20:16 Troponin I, Quant < 0.0120 ng/mL (0.00-0.120) 05/11/17 04:56 NT-Pro-B Natriuret Pep 613 pg/mL (0-900) 05/10/17 13:05 Total Protein 6.7 g/dL (6.3-8.3) 05/10/17 13:05 Albumin 3.4 g/dL (3.5-5.0) L 05/10/17 13:05 Globulin 3.3 gm/dL (2.2-3.9) 05/10/17 13:05 Albumin/Globulin Ratio 1.0 (1.0-2.1) 05/10/17 13:05 Triglycerides 88 mg/dL (0-149) 05/11/17 04:56 Cholesterol 126 mg/dL (0-199) 05/11/17 04:56 LDL Cholesterol Direct 73 mg/dL (0-129) 05/11/17 04:56 HDL Cholesterol 28 mg/dL (30-70) L 05/11/17 04:56 Lipase 122 U/L (23-300) 05/10/17 13:05 Urine Color Yellow (YELLOW) 05/10/17 15:00 Urine Clarity Clear (Clear) 05/10/17 15:00 Urine pH 5.0 (5.0-8.0) 05/10/17 15:00 Ur Specific Lupton 1.015 (1.003-1.030) 05/10/17 15:00 Urine Protein 2+ mg/dL (NEGATIVE) H 05/10/17 15:00 Urine Glucose (UA) Normal mg/dL (Normal) 05/10/17 15:00 Urine Ketones Negative mg/dL (NEGATIVE) 05/10/17 15:00 Urine Blood Negative (NEGATIVE) 05/10/17 15:00 Urine Nitrate Negative (NEGATIVE) 05/10/17 15:00 Urine Bilirubin Negative (NEGATIVE) 05/10/17 15:00 Urine Urobilinogen Normal mg/dL (0.2-1.0) 05/10/17 15:00 Ur Leukocyte Esterase Neg Parrish/uL (Negative) 05/10/17 15:00 Urine WBC (Auto) 2 /hpf (0-5) 05/10/17 15:00 Urine RBC (Auto) < 1 /hpf (0-3) 05/10/17 15:00 Urine Bacteria Rare (<OCC) 05/10/17 15:00 - Hospital Course Hospital Course: A/P 61 yr old male admitted for left sided chest pain troponin x 3 - negative ct- chest negative for -PE US kidney- b/l non obstructing renal calculi and b/l renal cyst stable for discharge home today and f/u with me office in 1 week Discharge instructions discussed with patient , who understands and agrees with plan Pt instructed to returns to ED if symptoms returns Discharge Exam - Eye Exam Eye Exam: EOMI, Normal appearance, PERRL Pupil Exam: NORMAL ACCOMODATION, PERRL - ENT Exam ENT Exam: Mucous Membranes Moist - Respiratory Exam Respiratory Exam: Clear to PA & Lateral, NORMAL BREATHING PATTERN - Cardiovascular Exam Cardiovascular Exam: REGULAR RHYTHM, +S1, +S2 - GI/Abdominal Exam GI & Abdominal Exam: Normal Bowel Sounds - Neurological Exam Neurological exam: Alert, CN II-XII Intact, Normal Gait, Oriented x3, Reflexes Normal - Psychiatric Exam Psychiatric exam: Normal Affect, Normal Mood Discharge Plan - Follow Up Plan Condition: STABLE Disposition: HOME/ ROUTINE Instructions: Chest Pain (DC), Heart Healthy Diet (DC) Additional Instructions: f/u with Dr. Drew office in 1 week F/u with Dr. Rockwell office in 3 days resume all home medications Referrals: Benitez Rockwell MD [Staff Provider] - Albaro Drew MD [Staff Provider] -
--- NOTE | 2017-05-12 00:28 | CARD ---
APPROVED REPORT EKG Measurement Heart [id number] [id number] <Conclusion> Normal sinus rhythm Voltage criteria for left ventricular hypertrophy Nonspecific T wave abnormality Abnormal ECG
[2017-05-12] MEDS ORDERED: Pneumococcal 23-Valent Vaccine IM ONE (10:00)
[2017-05-17] MEDS ORDERED: Ergocalciferol 50,000 Intl Units Cap PO SCH (10:00)
== END 2017-05-11 18:20 | disposition home or self-care (01) ==
LOC: C.ER 12:18 → C.9E 13:57 → C.6T 14:42
PROVIDERS: ADMIT Internal Medicine; ATTEND Internal Medicine
DX: R07.89 Other chest pain (principal); M54.5 Low back pain; N20.0 Calculus of kidney; F11.20 Opioid dependence, uncomplicated; I25.10 Atherosclerotic heart disease of native coronary artery without angina pectoris; Z95.5 Presence of coronary angioplasty implant and graft; I10 Essential (primary) hypertension; E11.9 Type 2 diabetes mellitus without complications; J45.909 Unspecified asthma, uncomplicated; M06.9 Rheumatoid arthritis, unspecified; E66.01 Morbid (severe) obesity due to excess calories; Z86.19 Personal history of other infectious and parasitic diseases; Z79.82 Long term (current) use of aspirin; Z79.4 Long term (current) use of insulin; Z79.52 Long term (current) use of systemic steroids; Z79.899 Other long term (current) drug therapy

== ENCOUNTER 2017-07-06 18:01 | Inpatient (IN) | payer MEDICAID ==
[2017-07-06 18:16] VITALS: BMI 39.3
[2017-07-06] MEDS ORDERED: Nitroglycerin 2% Ointment Foilpak UD TOP STA (18:44)
[2017-07-06 18:59] LABS: BASO % 0.2 % (0.0-2.0); EOS # 0.1 K/uL (0.0-0.7); EOS % 0.9 % (0.0-4.0); HEMATOCRIT 33.8 % (35.0-51.0); LYMPH # 0.6 K/uL (1.0-4.3); LYMPH % 9.9 % (20.0-40.0); MEAN CELL VOLUME 88.5 fL (80.0-94.0); MEAN CORPUSCULAR HEMOGLOBIN 28.6 pg (27.0-31.0); MEAN CORPUSCULAR HGB CONC 32.3 g/dL (33.0-37.0); MEAN PLATELET VOLUME 7.8 fL (7.2-11.7); MONO # 0.4 K/uL (0.0-0.8); PLATELET COUNT 127 K/uL (130-400); RED CELL DISTRIBUTION WIDTH 16.8 % (11.5-14.5); WHITE BLOOD COUNT 6.4 K/uL (4.8-10.8)
[2017-07-06] MEDS ORDERED: Nitroglycerin 2% Ointment Foilpak UD TOP ONE (18:59)
[2017-07-06 19:09] LABS: CHLORIDE 111 mmol/L (98-107); POTASSIUM 4.6 mmol/L (3.6-5.2); SODIUM 144 mmol/L (132-148)
[2017-07-06 19:11] LABS: BILIRUBIN,TOTAL 0.5 mg/dL (0.2-1.3); GFR AFRICAN-AMERICAN > 60
[2017-07-06 19:12] LABS: ALB/GLOB RATIO 1.1 (1.0-2.1); ALKALINE PHOSPHATASE 105 U/L (38-126); ALT/SGPT 28 U/L (21-72); AST/SGOT 19 U/L (17-59); BLOOD UREA NITROGEN 32 mg/dL (9-20); CARBON DIOXIDE 23 mmol/L (22-30); GLUCOSE,RANDOM 91 mg/dL (75-110); TOTAL PROTEIN 6.7 g/dL (6.3-8.3)
[2017-07-06 19:13] LABS: CALCIUM 8.5 mg/dl (8.6-10.4)
--- NOTE | 2017-07-06 19:50 | C.PDOC ---
History Of Present Illness Pt c/o chest pain radiating to LUE that started this afternoon. He states that his BP has been elevated for the past few days. Time Seen by Provider: 07/06/17 18:30 Chief Complaint (Nursing): Chest Pain History Per: Patient, EMS Onset/Duration Of Symptoms: Hrs (2) Current Symptoms Are (Timing): Better Severity: Moderate Quality: Pressure Associated Symptoms: Dyspnea Modifying Factors: Other Indicated Below Nitro Therapy Administered: 2, Per EMS, Partial Relief Additional History Per: Prior Records Past Medical History Reviewed: Historical Data, Nursing Documentation, Vital Signs Vital Signs: Last Vital Signs Temp 98.5 F 07/06/17 18:21 Pulse 58 L 07/06/17 19:41 Resp 16 07/06/17 19:41 BP 123/76 07/06/17 19:41 Pulse Ox 100 07/06/17 19:41 - Medical History PMH: Arthritis, Asthma, Gastritis, HTN, Kidney Stones, Peripheral Edema, Chronic Kidney Disease, Rheumatoid Arthritis Surgical History: Coronary Stent - [facility] Procedures CORONAR ARTERIOGR-2 CATH (01/30/02) LEFT HEART CARDIAC CATH (01/30/02) LT HEART ANGIOCARDIOGRAM (01/30/02) Family History: States: Unknown Family Hx - Social History Hx Tobacco Use: No Hx Alcohol Use: No Hx Substance Use: No - Immunization History Hx Tetanus Toxoid Vaccination: No Hx Influenza Vaccination: Yes Hx Pneumococcal Vaccination: No Review Of Systems Except As Marked, All Systems Reviewed And Found Negative. Constitutional: Negative for: Fever Cardiovascular: Positive for: Chest Pain Respiratory: Positive for: Shortness of Breath. Negative for: Hemoptysis Gastrointestinal: Negative for: Vomiting Musculoskeletal: Negative for: Neck Pain Skin: Negative for: Rash Neurological: Negative for: Weakness, Numbness Physical Exam - Physical Exam Appears: No Acute Distress, Chronically Ill Skin: Normal Color, Warm, Dry, No Rash Head: Atraumatic, Normacephalic Eye(s): bilateral: PERRL, EOMI Neck: Normal ROM, Supple Cardiovascular: Rhythm Regular Respiratory: Normal Breath Sounds, No Accessory Muscle Use Gastrointestinal/Abdominal: Soft, No Tenderness Back: No CVA Tenderness Extremity: Normal ROM Neurological/Psych: Oriented x3, Normal Motor, Normal Sensation ED Course And Treatment - Laboratory Results Result Diagrams: 07/06/17 18:54 09/07/17 18:54 Lab Interpretation: No Changes Compared To Prior Results ECG: Interpreted By Me, Viewed By Me ECG Rhythm: Sinus Rhythm, Nonspecific Changes ECG Interpretation: No Changes From Prior Interpretation Of ECG: LVH Rate From EC O2 Sat by Pulse Oximetry: 100 Pulse Ox Interpretation: Normal - Radiology CXR: Interpreted by Me, Viewed By Me CXR Interpretation: Yes: No Acute Disease Progress - Interventions Interventions:: Observation, Oxygen - Medications Administered Oral: Aspirin (given by EMS) - Data Reviewed Data Reviewed: Lab, Diagnostic imaging, EKG, Old records - Patient Status Patient status: Mostly improved - Continuity of Care Discussed patient case with:: Patient, ED Nurse, PMD Disposition Discussed With : Albaro Drew Comment: He accepted pt on his service. Doctor Will See Patient In The: Hospital Counseled Patient/Family Regarding: Studies Performed, Diagnosis - Disposition Disposition: HOSPITALIZED Disposition Time: 19:55 Condition: FAIR - Clinical Impression Clinical Impression: Chest pain
[2017-07-06 20:35] LABS: BASOPHIL 1 % (0-2); EOSINOPHIL 2 % (0-4); LARGE PLATELETS PRESENT; NEUTROPHIL 85 % (50-75); SMUDGE CELLS PRESENT; TOTAL CELLS COUNTED 100
--- NOTE | 2017-07-06 22:31 | CP.PCM.HP ---
History of Present Illness - History of Present Illness History of Present Illness: 62 Y/O WITH HTN, OBESITY, DM, RA, NON SMOKER, NO ETOH, ON METHADONE CAME WITH L PRECORDIAL CHEST PAIN, NON EXERTIONAL, NON RADIATING, NO DIAOHORESIS, Present on Admission - Present on Admission Any Indicators Present on Admission: No History of DVT/PE: No History of Uncontrolled Diabetes: No Urinary Catheter: No Decubitus Ulcer Present: No Review of Systems - Constitutional Constitutional: Headache - Cardiovascular Cardiovascular: Chest Pain at Rest, Leg Edema, Palpitations - Respiratory Respiratory: Chest Congestion Past Patient History - Past Medical History & Family History Past Medical History?: Yes - Past Social History Smoking Status: Never Smoked - CARDIAC Hx Hypertension: Yes Hx Peripheral Edema: Yes - PULMONARY Hx Asthma: Yes - NEUROLOGICAL Hx Neurological Disorder: No - HEENT Hx HEENT Problems: No - RENAL Hx Chronic Kidney Disease: Yes Hx Kidney Stones: Yes - ENDOCRINE/METABOLIC Hx Endocrine Disorders: Yes Hx Diabetes Mellitus Type 2: Yes - HEMATOLOGICAL/ONCOLOGICAL Hx Blood Disorders: Yes Hx Hepatitis C: Yes (1999) - INTEGUMENTARY Hx Dermatological Problems: No - MUSCULOSKELETAL/RHEUMATOLOGICAL Hx Arthritis: Yes Hx Rheumatoid Arthritis: Yes - GASTROINTESTINAL Hx Gastritis: Yes - GENITOURINARY/GYNECOLOGICAL Hx Genitourinary Disorders: No - PSYCHIATRIC Hx Substance Use: No - SURGICAL HISTORY Hx Coronary Stent: Yes - ANESTHESIA Hx Anesthesia: Yes Hx Anesthesia Reactions: No Meds Home Medications: Home Medication List Medication Instructions Recorded Confirmed Type Aspirin [Ecotrin] 81 mg PO DAILY #30 07/08/17 Rx Carvedilol [Coreg] 3.125 mg PO BID #60 tab 07/08/17 Rx Fluticasone/Salmeterol [Advair 1 each IH DAILY #1 07/08/17 Rx 250-50 Diskus] Furosemide [Lasix] 20 mg PO DAILY #30 07/08/17 Rx Lancets [Blood Lancets] 1 each MC DAILY #40 each 07/08/17 Rx Omeprazole 20 mg PO DAILY #30 07/08/17 Rx Ramipril [Altace] 5 mg PO DAILY #30 capsule 07/08/17 Rx hydrALAZINE [Apresoline] 25 mg PO TID #90 tab 07/08/17 Rx Allergies/Adverse Reactions: Allergies Allergy/AdvReac Type Severity Reaction Status Date / Time No Known Allergies Allergy Verified 07/06/17 18:16 Physical Exam - Constitutional Appears: Non-toxic, No Acute Distress, Chronically Ill - Head Exam Head Exam: ATRAUMATIC, NORMAL INSPECTION, NORMOCEPHALIC - Eye Exam Eye Exam: EOMI, Normal appearance, PERRL Pupil Exam: NORMAL ACCOMODATION - ENT Exam ENT Exam: Mucous Membranes Moist, Normal Exam, Normal Oropharynx, TM's Normal Bilaterally - Neck Exam Neck exam: Positive for: Normal Inspection - Respiratory Exam Respiratory Exam: Decreased Breath Sounds, Clear to Auscultation Bilateral, NORMAL BREATHING PATTERN - Cardiovascular Exam Cardiovascular Exam: REGULAR RHYTHM, +S1, +S2 - GI/Abdominal Exam GI & Abdominal Exam: Normal Bowel Sounds - Rectal Exam Rectal Exam: NORMAL INSPECTION - Back Exam Back exam: NORMAL INSPECTION - Neurological Exam Neurological exam: Alert, CN II-XII Intact, Normal Gait, Oriented x3, Reflexes Normal - Psychiatric Exam Psychiatric exam: Anxious, Flat Affect Results - Vital Signs Recent Vital Signs: Last Vital Signs Temp 98.1 F 07/06/17 22:00 Pulse 52 L 07/06/17 22:00 Resp 22 07/06/17 22:00 BP 157/86 H 07/06/17 22:00 Pulse Ox 97 07/06/17 22:00 - Labs Result Diagrams: 07/07/17 14:01 07/07/17 14:01 Assessment & Plan (1) Hypertension Status: Chronic Priority: Medium (2) Diabetes mellitus Status: Chronic Priority: Low (3) Opiate addiction Status: Chronic Priority: High (4) Chest pain Assessment and Plan: R/O AMI Status: Acute Priority: High
[2017-07-07] MEDS ORDERED: Pneumococcal 23-Valent Vaccine IM ONE (01:40)
--- NOTE | 2017-07-07 07:25 | RAD ---
PROCEDURE: CHEST RADIOGRAPH, 1 VIEW HISTORY: chest pain COMPARISON: Portable chest 05/10/2017. FINDINGS: LUNGS: No acute infiltrate is appreciated bilaterally. PLEURA: No pneumothorax or pleural fluid seen. CARDIOVASCULAR: Cardiomegaly appears stable. There is no pulmonary vascular derangement appreciated. OSSEOUS STRUCTURES: No significant abnormalities. VISUALIZED UPPER ABDOMEN: Normal. OTHER FINDINGS: None. IMPRESSION: No acute cardiopulmonary disease or significant interval change appreciated compared 05/10/2017. Cardiomegaly appears stable.
[2017-07-07] MEDS: Multiple Vitamins Tab PO SCH (09:52)
[2017-07-07] MEDS: Pantoprazole 40 mg EC Tab PO SCH (09:52)
[2017-07-07] MEDS: Enoxaparin 40 mg Syringe SC SCH (09:53)
[2017-07-07] MEDS ORDERED: Influenza Virus Vaccine 45 mcg/0.5 ml Syr IM ONE (10:40)
--- NOTE | 2017-07-07 11:51 | CP.PCM.PN ---
Subjective - Date & Time of Evaluation Date of Evaluation: 07/07/17 Time of Evaluation: 10:30 Objective - Vital Signs/Intake and Output Vital Signs (last 24 hours): Temp Pulse Resp BP Pulse Ox 98.0 F 85 18 148/85 97 07/07/17 07:15 07/07/17 11:35 07/07/17 07:15 07/07/17 11:35 07/07/17 07:15 - Medications Medications: Current Medications Acetaminophen (Tylenol 325mg Tab) 975 mg PO Q6 PRN PRN Reason: Pain, moderate (4-7) Albuterol (Ventolin Hfa 90 Mcg/Actuation (8 G)) 2 puff IH RQ6 PRN PRN Reason: Wheezing Allopurinol (Zyloprim) 100 mg PO DAILY [facility] Last Admin: 07/07/17 09:52 Dose: 100 mg Aspirin (Ecotrin) 81 mg PO DAILY [facility] Last Admin: 07/07/17 09:52 Dose: 81 mg Carvedilol (Coreg) 3.125 mg PO BID [facility] Enoxaparin Sodium (Lovenox) 40 mg SC DAILY [facility] Last Admin: 07/07/17 09:53 Dose: 40 mg Folic Acid (Folic Acid) 1 mg PO DAILY [facility] Last Admin: 07/07/17 09:52 Dose: 1 mg Furosemide (Lasix) 20 mg PO DAILY [facility] Last Admin: 07/07/17 09:52 Dose: 20 mg Hydralazine HCl (Apresoline) 25 mg PO TID [facility] Lisinopril (Zestril) 20 mg PO DAILY [facility] Last Admin: 07/07/17 11:36 Dose: 20 mg Methadone HCl (Methadone) 38 mg PO DAILY [facility] Methotrexate (Methotrexate) 6 mg PO QWK [facility] Multivitamins (Hexavitamin) 1 tab PO DAILY [facility] Last Admin: 07/07/17 09:52 Dose: 1 tab Pantoprazole Sodium (Protonix Ec Tab) 40 mg PO DAILY [facility] Last Admin: 07/07/17 09:52 Dose: 40 mg Pneumococcal Polyvalent Vaccine (Pneumovax 23 Vaccine) 0.5 ml IM .ONCE ONE Stop: 07/10/17 10:01 Prednisone (Prednisone Tab) 5 mg PO DAILY [facility] Last Admin: 07/07/17 09:53 Dose: 5 mg Fluticasone/Salmeterol (Advair Diskus 250/50) puff IH DAILY [facility] - Labs Labs: PT 11.4 SECONDS (9.7-12.2) 07/06/17 18:54 INR 1.0 07/06/17 18:54 APTT 30 SECONDS (21-34) 07/06/17 18:54
[2017-07-07 14:22] LABS: BLOOD UREA NITROGEN 28 mg/dL (9-20); CALCIUM 8.9 mg/dl (8.6-10.4); CARBON DIOXIDE 25 mmol/L (22-30); CHLORIDE 107 mmol/L (98-107); GFR AFRICAN-AMERICAN > 60; GLUCOSE,RANDOM 123 mg/dL (75-110); POTASSIUM 4.2 mmol/L (3.6-5.2); SODIUM 145 mmol/L (132-148)
[2017-07-07 14:26] LABS: HEMATOCRIT 35.1 % (35.0-51.0); MEAN CELL VOLUME 89.1 fL (80.0-94.0); MEAN CORPUSCULAR HEMOGLOBIN 28.2 pg (27.0-31.0); MEAN CORPUSCULAR HGB CONC 31.7 g/dL (33.0-37.0); MEAN PLATELET VOLUME 7.9 fL (7.2-11.7); RED CELL DISTRIBUTION WIDTH 16.5 % (11.5-14.5); WHITE BLOOD COUNT 6.4 K/uL (4.8-10.8)
[2017-07-07 16:10] VITALS: RESP 20
--- NOTE | 2017-07-07 18:51 | CARD ---
APPROVED REPORT EKG Measurement Heart [id number] AR 152P31 [id number] <Conclusion> Sinus rhythm with premature atrial complexes Voltage criteria for left ventricular hypertrophy Nonspecific T wave abnormality Abnormal ECG
--- NOTE | 2017-07-07 19:03 | CON ---
DATE: REASON FOR CONSULTATION: Chest pain. HISTORY OF PRESENT ILLNESS: The patient is 62-year-old male, who is a former smoker and former ETOH abuser, has a history of coronary artery disease with coronary artery stent 3 years ago according to the patient, was admitted because of chest discomfort and elevated blood pressure. The patient cannot characterize his chest pain, but denies any radiation. The patient is currently chest pain free. SOCIAL HISTORY: Former smoker and former ETOH abuser, REVIEW OF SYSTEMS: No nausea or vomiting. No fever or chills. MEDICATIONS: Hydralazine 25 mg t.i.d., Coreg 3.125 mg twice a day, aspirin 81 mg once a day, Lasix 20 mg twice a day, Lovenox 40 mg subcutaneous once a day, methadone 75 mg once a day, Zestril 20 mg once a day, albuterol inhaler, and Zyloprim 100 mg once a day. PHYSICAL EXAMINATION: GENERAL: The patient is a middle-aged male who does not appear to be in acute distress. VITAL SIGNS: Blood pressure 155/99, heart rate 64, temperature 98.0, respirations 18. HEENT: Normocephalic. NECK: No JVD. CHEST: Bilateral basal rhonchi. HEART: S1 and S2, regular. ABDOMEN: Soft. EXTREMITIES: 1+ pitting edema. LABORATORY DATA: Hemoglobin and hematocrit 11.1 and 35.1, white count 6.4, platelet count slightly reduced at 128,000. PT and PTT are within normal limits. SMA-7 today is within normal limits except for glucose of 123 and BUN of 28. Three sets of troponins are negative, proBNP is 954. Chest x-ray revealed cardiomegaly with mild CHF. EKG revealed sinus rhythm with APCs and nonspecific T wave changes. ASSESSMENT: 1. Chest pain, myocardial infarction is ruled out. 2. History of coronary artery disease status post coronary artery stenting some 3 years ago. 3. Congestive heart failure. 4. Mild thrombocytopenia. 5. Mild anemia. 6. Rheumatoid arthritis. RECOMMENDATIONS: Continue current Zestril 20 mg once a day. Change Lasix to 20 mg intravenous once a day. Continue folic acid, methadone, prednisone. Hydralazine 25 mg t.i.d. was started today. Continue Coreg 3.125 mg twice a day. Miguel Oscar MD
[2017-07-07] MEDS: Fluticasone-Salmeterol 250-50mcg Diskus INH SCH (19:31)
[2017-07-08] MEDS: Fluticasone-Salmeterol 250-50mcg Diskus INH SCH ×2 (07:33→20:20)
[2017-07-08] MEDS: Albuterol HFA 90 mcg/actuation (8 g) IH PRN ×2 (07:34→20:19)
[2017-07-08] MEDS: Enoxaparin 40 mg Syringe SC SCH (09:56)
[2017-07-08] MEDS: Pantoprazole 40 mg EC Tab PO SCH (09:57)
[2017-07-08] MEDS: Multiple Vitamins Tab PO SCH (09:57)
--- NOTE | 2017-07-08 14:03 | CARD ---
APPROVED REPORT EXAM: Two-dimensional and M-mode echocardiogram with Doppler and color Doppler. Other Information Quality : GoodRhythm : NSR INDICATION Chest Pain Congestive Heart Failure 2D DIMENSIONS IVSd1.2 (0.7-1.1cm)LVDd5.7 (3.9-5.9cm) PWd1.3 (0.7-1.1cm)LVDs3.8 (2.5-4.0cm) FS (%) 33.3 %LVEF (%)61.2 (>50%) M-Mode DIMENSIONS Left Atrium (MM)3.87 (2.5-4.0cm)Aortic Root4.62 (2.2-3.7cm) Aortic Cusp Exc.2.46 (1.5-2.0cm) Aortic Valve AI P 1/2 [id number] Mitral Valve MV E Gfqrffye83.2cm/sMV A Oyzuyrzo12.1cm/sE/A ratio0.6 TDI E/Lateral E'0.0E/Medial E'0.0 Tricuspid Valve TR Peak [id number]/sTR Peak Gr.22mmHg LEFT VENTRICLE The left ventricle is normal size. There is mild concentric left ventricular hypertrophy. Left ventricle systolic function is normal. The Ejection Fraction is 65-70%. There is normal LV segmental wall motion. Transmitral Doppler flow pattern is Grade I-abnormal relaxation pattern. There is no ventricular septal defect visualized. RIGHT VENTRICLE The right ventricle is normal size. The right ventricular systolic function is normal. ATRIA The left atrium is borderline dilated. The right atrium size is normal. AORTIC VALVE The aortic valve is mildly sclerotic. The aortic valve is tri-cuspid. There is mild to moderate aortic regurgitation. There is no aortic valvular vegetation. MITRAL VALVE The mitral valve is normal in structure. There is no evidence of mitral valve prolapse. There is no mitral valve regurgitation noted. TRICUSPID VALVE The tricuspid valve is normal in structure. There is no tricuspid valve regurgitation noted. PULMONIC VALVE The pulmonary valve is normal in structure. There is no pulmonic valvular regurgitation. GREAT VESSELS The aortic root is mildly enlarged. The ascending aorta is Mildly dilated. The IVC is normal in size and collapses >50% with inspiration. PERICARDIAL EFFUSION There is no pericardial effusion. <Conclusion> There is mild concentric left ventricular hypertrophy. Left ventricle systolic function is normal. The Ejection Fraction is 65-70%. Transmitral Doppler flow pattern is Grade I-abnormal relaxation pattern. There is mild to moderate aortic regurgitation. The ascending aorta is Mildly dilated.
--- NOTE | 2017-07-09 00:02 | CP.PCM.PN ---
Subjective - Date & Time of Evaluation Date of Evaluation: 07/07/17 - Subjective Subjective: VERY WEAK, [place]ED[place], HE HAS LOTS OF MEDICAL PROBLEMS, NO DISTRESS Objective - Vital Signs/Intake and Output Vital Signs (last 24 hours): Temp Pulse Resp BP Pulse Ox 98 F 73 20 156/90 H 97 07/08/17 15:54 07/08/17 15:54 07/08/17 15:54 07/08/17 15:54 07/08/17 15:54 Intake and Output: 07/08/17 07/09/17 18:59 06:59 Intake Total 500 Output Total 500 Balance 0 - Medications Medications: Current Medications Acetaminophen (Tylenol 325mg Tab) 975 mg PO Q6 PRN PRN Reason: Pain, moderate (4-7) Last Admin: 07/08/17 19:11 Dose: 975 mg Albuterol (Ventolin Hfa 90 Mcg/Actuation (8 G)) 2 puff IH RQ6 PRN PRN Reason: Wheezing Last Admin: 07/08/17 20:19 Dose: 2 puff Allopurinol (Zyloprim) 100 mg PO DAILY [facility] Last Admin: 07/08/17 09:58 Dose: 100 mg Aspirin (Ecotrin) 81 mg PO DAILY [facility] Last Admin: 07/08/17 09:58 Dose: 81 mg Carvedilol (Coreg) 3.125 mg PO BID [facility] Last Admin: 07/08/17 17:27 Dose: Not Given Enoxaparin Sodium (Lovenox) 40 mg SC DAILY [facility] Last Admin: 07/08/17 09:56 Dose: 40 mg Folic Acid (Folic Acid) 1 mg PO DAILY [facility] Last Admin: 07/08/17 09:57 Dose: 1 mg Furosemide (Lasix) 20 mg IVP DAILY [facility] Last Admin: 07/08/17 09:57 Dose: 20 mg Hydralazine HCl (Apresoline) 25 mg PO TID [facility] Last Admin: 07/08/17 17:27 Dose: 25 mg Lisinopril (Zestril) 20 mg PO DAILY [facility] Last Admin: 07/08/17 09:57 Dose: 20 mg Methadone HCl (Methadone) 30 mg PO DAILY [facility] Last Admin: 07/08/17 11:30 Dose: 30 mg Methadone HCl (Methadone) 5 mg PO DAILY [facility] Last Admin: 09/09/17 11:30 Dose: 5 mg Multivitamins (Hexavitamin) 1 tab PO DAILY [facility] Last Admin: 07/08/17 09:57 Dose: 1 tab Pantoprazole Sodium (Protonix Ec Tab) 40 mg PO DAILY [facility] Last Admin: 07/08/17 09:57 Dose: 40 mg Pneumococcal Polyvalent Vaccine (Pneumovax 23 Vaccine) 0.5 ml IM .ONCE ONE Stop: 07/10/17 10:01 Prednisone (Prednisone Tab) 5 mg PO DAILY [facility] Last Admin: 07/08/17 09:57 Dose: 5 mg Fluticasone/Salmeterol (Advair Diskus 250/50) 1 puff INH BID [facility] Last Admin: 07/08/17 20:20 Dose: 1 puff - Labs Labs: 07/07/17 14:01 07/07/17 14:01 PT 11.4 SECONDS (9.7-12.2) 07/06/17 18:54 INR 1.0 07/06/17 18:54 APTT 30 SECONDS (21-34) 07/06/17 18:54 - Constitutional Appears: Non-toxic, No Acute Distress - Head Exam Head Exam: ATRAUMATIC, NORMAL INSPECTION, NORMOCEPHALIC - Eye Exam Eye Exam: EOMI, Normal appearance, PERRL Pupil Exam: NORMAL ACCOMODATION - ENT Exam ENT Exam: Mucous Membranes Moist, Normal Exam, Normal Oropharynx, TM's Normal Bilaterally - Neck Exam Neck Exam: Normal Inspection - Respiratory Exam Respiratory Exam: Decreased Breath Sounds, Clear to Ausculation Bilateral, NORMAL BREATHING PATTERN - Cardiovascular Exam Cardiovascular Exam: REGULAR RHYTHM, +S1, +S2 - GI/Abdominal Exam GI & Abdominal Exam: Normal Bowel Sounds - Rectal Exam Rectal Exam: NORMAL INSPECTION - Extremities Exam Extremities Exam: Normal Capillary Refill - Neurological Exam Neurological Exam: Alert, Awake, CN II-XII Intact, Normal Gait, Oriented x3 Assessment and Plan (1) Hypertension Status: Chronic (2) Diabetes mellitus Status: Chronic (3) Opiate addiction Status: Chronic (4) Chest pain Assessment & Plan: RULED OUT AMI Status: Acute
--- NOTE | 2017-07-09 00:03 | CP.PCM.PN ---
Subjective - Date & Time of Evaluation Date of Evaluation: 07/08/17 - Subjective Subjective: WEAK, DIFFICULTY WALKING, NO SOB, + CHEST PAIN Objective - Vital Signs/Intake and Output Vital Signs (last 24 hours): Temp Pulse Resp BP Pulse Ox 98 F 73 20 156/90 H 97 07/08/17 15:54 07/08/17 15:54 07/08/17 15:54 07/08/17 15:54 07/08/17 15:54 Intake and Output: 07/08/17 07/09/17 18:59 06:59 Intake Total 500 Output Total 500 Balance 0 - Medications Medications: Current Medications Acetaminophen (Tylenol 325mg Tab) 975 mg PO Q6 PRN PRN Reason: Pain, moderate (4-7) Last Admin: 07/08/17 19:11 Dose: 975 mg Albuterol (Ventolin Hfa 90 Mcg/Actuation (8 G)) 2 puff IH RQ6 PRN PRN Reason: Wheezing Last Admin: 07/08/17 20:19 Dose: 2 puff Allopurinol (Zyloprim) 100 mg PO DAILY [facility] Last Admin: 07/08/17 09:58 Dose: 100 mg Aspirin (Ecotrin) 81 mg PO DAILY [facility] Last Admin: 07/08/17 09:58 Dose: 81 mg Carvedilol (Coreg) 3.125 mg PO BID [facility] Last Admin: 07/08/17 17:27 Dose: Not Given Enoxaparin Sodium (Lovenox) 40 mg SC DAILY [facility] Last Admin: 07/08/17 09:56 Dose: 40 mg Folic Acid (Folic Acid) 1 mg PO DAILY [facility] Last Admin: 07/08/17 09:57 Dose: 1 mg Furosemide (Lasix) 20 mg IVP DAILY [facility] Last Admin: 07/08/17 09:57 Dose: 20 mg Hydralazine HCl (Apresoline) 25 mg PO TID [facility] Last Admin: 07/08/17 17:27 Dose: 25 mg Lisinopril (Zestril) 20 mg PO DAILY [facility] Last Admin: 07/08/17 09:57 Dose: 20 mg Methadone HCl (Methadone) 30 mg PO DAILY [facility] Last Admin: 07/08/17 11:30 Dose: 30 mg Methadone HCl (Methadone) 5 mg PO DAILY [facility] Last Admin: 07/08/17 11:30 Dose: 5 mg Multivitamins (Hexavitamin) 1 tab PO DAILY [facility] Last Admin: 07/08/17 09:57 Dose: 1 tab Pantoprazole Sodium (Protonix Ec Tab) 40 mg PO DAILY [facility] Last Admin: 07/08/17 09:57 Dose: 40 mg Pneumococcal Polyvalent Vaccine (Pneumovax 23 Vaccine) 0.5 ml IM .ONCE ONE Stop: 07/10/17 10:01 Prednisone (Prednisone Tab) 5 mg PO DAILY [facility] Last Admin: 07/08/17 09:57 Dose: 5 mg Fluticasone/Salmeterol (Advair Diskus 250/50) 1 puff INH BID [facility] Last Admin: 07/08/17 20:20 Dose: 1 puff - Labs Labs: 07/07/17 14:01 07/07/17 14:01 PT 11.4 SECONDS (9.7-12.2) 07/06/17 18:54 INR 1.0 07/06/17 18:54 APTT 30 SECONDS (21-34) 07/06/17 18:54 - Constitutional Appears: Non-toxic, No Acute Distress, Chronically Ill - Head Exam Head Exam: ATRAUMATIC, NORMAL INSPECTION, NORMOCEPHALIC - Eye Exam Eye Exam: EOMI, Normal appearance, PERRL Pupil Exam: NORMAL ACCOMODATION - ENT Exam ENT Exam: Mucous Membranes Moist, Normal Exam, Normal Oropharynx, TM's Normal Bilaterally - Neck Exam Neck Exam: Full ROM, Normal Inspection - Respiratory Exam Respiratory Exam: Decreased Breath Sounds, Clear to Ausculation Bilateral, NORMAL BREATHING PATTERN - Cardiovascular Exam Cardiovascular Exam: REGULAR RHYTHM, +S1, +S2 - GI/Abdominal Exam GI & Abdominal Exam: Normal Bowel Sounds - Rectal Exam Rectal Exam: NORMAL INSPECTION - Extremities Exam Extremities Exam: Normal Capillary Refill - Neurological Exam Neurological Exam: Alert, Awake, CN II-XII Intact, Normal Gait, Oriented x3 Assessment and Plan (1) Hypertension Status: Chronic (2) Diabetes mellitus Status: Chronic (3) Opiate addiction Status: Chronic (4) Chest pain Status: Acute
[2017-07-09] MEDS: Multiple Vitamins Tab PO SCH (09:08)
[2017-07-09] MEDS: Pantoprazole 40 mg EC Tab PO SCH (09:08)
[2017-07-09 09:09] VITALS: PULSE 65; TEMP 98.5; O2SAT 97
[2017-07-09] MEDS: Enoxaparin 40 mg Syringe SC SCH (09:10)
[2017-07-09 09:14] VITALS: BP 163/97
[2017-07-09] MEDS: Fluticasone-Salmeterol 250-50mcg Diskus INH SCH (13:05)
--- NOTE | 2017-07-09 22:28 | CP.PCM.DIS ---
Provider - Provider Date of Admission: 07/07/17 10:54 Attending physician: Albaro Drew MD Diagnosis - Discharge Diagnosis (1) Hypertension Status: Chronic Priority: Medium (2) Diabetes mellitus Status: Chronic Priority: Low (3) Opiate addiction Status: Chronic Priority: High (4) Chest pain Status: Acute Priority: High Hospital Course - Lab Results Lab Results: Most Recent Lab Values WBC 6.4 K/uL (4.8-10.8) 07/07/17 14:01 RBC 3.93 Mil/uL (4.40-5.90) L 07/07/17 14:01 Hgb 11.1 g/dL (12.0-18.0) L 07/07/17 14:01 Hct 35.1 % (35.0-51.0) 07/07/17 14:01 MCV 89.1 fL (80.0-94.0) 07/07/17 14:01 MCH 28.2 pg (27.0-31.0) 07/07/17 14:01 MCHC 31.7 g/dL (33.0-37.0) L 07/07/17 14:01 RDW 16.5 % (11.5-14.5) H 07/07/17 14:01 Plt Count 128 K/uL (130-400) L 07/07/17 14:01 MPV 7.9 fL (7.2-11.7) 07/07/17 14:01 Neut % (Auto) 83.0 % (50.0-75.0) H 07/06/17 18:54 Lymph % (Auto) 9.9 % (20.0-40.0) L 07/06/17 18:54 [place] % (Auto) 6.0 % (0.0-10.0) 07/06/17 18:54 Eos % (Auto) 0.9 % (0.0-4.0) 07/06/17 18:54 Baso % (Auto) 0.2 % (0.0-2.0) 07/06/17 18:54 Neut # 5.3 K/uL (1.8-7.0) 07/06/17 18:54 Lymph # 0.6 K/uL (1.0-4.3) L 07/06/17 18:54 [place] # 0.4 K/uL (0.0-0.8) 07/06/17 18:54 Eos # 0.1 K/uL (0.0-0.7) 07/06/17 18:54 Baso # 0.0 K/uL (0.0-0.2) 07/06/17 18:54 Neutrophils % (Manual) 85 % (50-75) H 07/06/17 18:54 Band Neutrophils % 2 % (0-2) 07/06/17 18:54 Lymphocytes % (Manual) 7 % (20-40) L 07/06/17 18:54 Monocytes % (Manual) 3 % (0-10) 07/06/17 18:54 Eosinophils % (Manual) 2 % (0-4) 07/06/17 18:54 Basophils % (Manual) 1 % (0-2) 07/06/17 18:54 Hypersegmented Polys Present 07/06/17 18:54 Smudge Cells Present 07/06/17 18:54 Platelet Estimate Decreased (NORMAL) L 07/06/17 18:54 Large Platelets Present 07/06/17 18:54 Polychromasia Slight 07/06/17 18:54 Poikilocytosis (manual Slight 07/06/17 18:54 Anisocytosis (manual) Slight 07/06/17 18:54 PT 11.4 SECONDS (9.7-12.2) 07/06/17 18:54 INR 1.0 07/06/17 18:54 APTT 30 SECONDS (21-34) 07/06/17 18:54 Sodium 145 mmol/L (132-148) 07/07/17 14:01 Potassium 4.2 mmol/L (3.6-5.2) 07/07/17 14:01 Chloride 107 mmol/L (98-107) 07/07/17 14:01 Carbon Dioxide 25 mmol/L (22-30) 07/07/17 14:01 Anion Gap 17 (10-20) 07/07/17 14:01 BUN 28 mg/dL (9-20) H 07/07/17 14:01 Creatinine 1.4 MG/DL (0.8-1.5) 07/07/17 14:01 Est GFR ( Amer) > 60 07/07/17 14:01 Est GFR (Non-Af Amer) 51 07/07/17 14:01 POC Glucose (mg/dL) 97 mg/dL (65-110) 07/07/17 11:14 Random Glucose 123 mg/dL (75-110) H 07/07/17 14:01 Calcium 8.9 mg/dl (8.6-10.4) 07/07/17 14:01 Total Bilirubin 0.5 mg/dL (0.2-1.3) 07/06/17 18:54 AST 19 U/L (17-59) 07/06/17 18:54 ALT 28 U/L (21-72) 07/06/17 18:54 Alkaline Phosphatase 105 U/L (38-126) 07/06/17 18:54 Total Creatine Kinase 46 U/L (55-170) L 07/07/17 14:01 CK-MB (Mass) 1.35 ng/mL (0.0-3.38) 07/07/17 14:01 Troponin I < 0.0120 ng/mL (0.00-0.120) 07/06/17 18:54 Troponin I, Quant < 0.0120 ng/mL (0.00-0.120) 07/07/17 14:01 NT-Pro-B Natriuret Pep 954 pg/mL (0-900) H 07/06/17 18:54 Total Protein 6.7 g/dL (6.3-8.3) 07/06/17 18:54 Albumin 3.6 g/dL (3.5-5.0) 07/06/17 18:54 Globulin 3.1 gm/dL (2.2-3.9) 07/06/17 18:54 Albumin/Globulin Ratio 1.1 (1.0-2.1) 07/06/17 18:54 - Hospital Course Hospital Course: admitted with chest pain, ami ruled out, and he kept feeling weak and dizzy now he is better, and is for discharge Discharge Exam - Head Exam Head Exam: ATRAUMATIC, NORMAL INSPECTION, NORMOCEPHALIC - Eye Exam Eye Exam: EOMI, Normal appearance, PERRL Pupil Exam: NORMAL ACCOMODATION - ENT Exam ENT Exam: Mucous Membranes Moist, Normal Exam, Normal Oropharynx, TM's Normal Bilaterally - Neck Exam Neck exam: Normal Inspection - Respiratory Exam Respiratory Exam: NORMAL BREATHING PATTERN - Cardiovascular Exam Cardiovascular Exam: REGULAR RHYTHM, +S1, +S2 - GI/Abdominal Exam GI & Abdominal Exam: Normal Bowel Sounds - Rectal Exam Rectal Exam: NORMAL INSPECTION - Neurological Exam Neurological exam: Alert, CN II-XII Intact, Normal Gait, Oriented x3, Reflexes Normal - Psychiatric Exam Psychiatric exam: Anxious, Depressed, Flat Affect - Skin Skin Exam: Intact Discharge Plan - Discharge Medications Prescriptions: Fluticasone/Salmeterol [Advair 250-50 Diskus] 1 each IH DAILY #1 Ramipril [Altace] 5 mg PO DAILY #30 capsule hydrALAZINE [Apresoline] 25 mg PO TID #90 tab Lancets [Blood Lancets] 1 each MC DAILY #40 each Carvedilol [Coreg] 3.125 mg PO BID #60 tab Aspirin [Ecotrin] 81 mg PO DAILY #30 Furosemide [Lasix] 20 mg PO DAILY #30 Omeprazole 20 mg PO DAILY #30 - Follow Up Plan Condition: FAIR Disposition: HOME/ ROUTINE Instructions: Chest Pain (DC), Basic Carbohydrate Counting (DC), Hypertension ( DC), Hypertension (GEN) Additional Instructions: SEE DR. DREW IN THE OFFICE IN 1 WEEK. SEE YOUR REFINERY OPERATOR [employer] IN THE OFFICE IN 2 WEEKS. TAKE ALL MEDICATION EXACTLY PRESCRIBED. Referrals: Miguel Oscar MD [Staff Provider] - Albaro Drew MD [Staff Provider] -
[2017-07-10] MEDS ORDERED: Pneumococcal 23-Valent Vaccine IM ONE (10:00)
--- NOTE | 2017-07-10 17:27 | CP.PCM.PN ---
Subjective - Date & Time of Evaluation Date of Evaluation: 07/08/17 Time of Evaluation: 17:00 - Subjective Subjective: PT SEEN BY DR. IGNACIO AND CLEARED FOR D/C HOME WITH NEW RX. PT REFUSING TO LEAVE THIS EVENING AND PREFERS TO LEAVE TOMORROW MORNING. ALL RX AND D/C INSTRUCTIONS READY FOR TOMORROW D/C. DR. IGNACIO AWARE AND OK. NO FURTHER ORDERS. Objective - Vital Signs/Intake and Output Vital Signs (last 24 hours): Temp Pulse Resp BP Pulse Ox 98.5 F 65 20 163/97 H 97 07/09/17 08:08 07/09/17 08:08 07/09/17 08:08 07/09/17 09:10 07/09/17 08:08 - Labs Labs: 07/07/17 14:01 07/07/17 14:01 PT 11.4 SECONDS (9.7-12.2) 07/06/17 18:54 INR 1.0 07/06/17 18:54 APTT 30 SECONDS (21-34) 07/06/17 18:54
== END 2017-07-09 13:47 | disposition home or self-care (01) | DRG 132 ==
LOC: C.ER 18:01 → C.9E 19:59 → C.6T 20:44 → OBSVTOIN 07-07 10:54
PROVIDERS: ADMIT Internal Medicine; ATTEND Internal Medicine
DX: I25.10 Atherosclerotic heart disease of native coronary artery without angina pectoris (principal); N18.9 Chronic kidney disease, unspecified; E11.22 Type 2 diabetes mellitus with diabetic chronic kidney disease; D69.6 Thrombocytopenia, unspecified; I13.0 Hypertensive heart and chronic kidney disease with heart failure and stage 1 through stage 4 chronic kidney disease, or unspecified chronic kidney disease; I50.9 Heart failure, unspecified; F11.20 Opioid dependence, uncomplicated; J45.909 Unspecified asthma, uncomplicated; M06.9 Rheumatoid arthritis, unspecified; Z95.5 Presence of coronary angioplasty implant and graft; E66.9 Obesity, unspecified; Z68.39 Body mass index [BMI] 39.0-39.9, adult; Z87.442 Personal history of urinary calculi; Z86.19 Personal history of other infectious and parasitic diseases; Z87.891 Personal history of nicotine dependence; D64.9 Anemia, unspecified

== ENCOUNTER 2018-11-11 14:53 | Observation (INO) | payer MEDICAID ==
[2018-11-11 14:54] VITALS: BMI 39.3
[2018-11-11] MEDS: Albuterol-Ipratrop 3 mg / 0.5 (3 ml) UD IH SCH ×3 (16:45→17:09)
[2018-11-11 17:08] LABS: BASO % 0.2 % (0.0-2.0); EOS % 0.2 % (0.0-4.0); HEMOGLOBIN 9.6 g/dL (12.0-18.0); LYMPH # 0.5 K/uL (1.0-4.3); LYMPH % 5.3 % (20.0-40.0); MEAN CELL VOLUME 85.5 fL (80.0-94.0); MEAN CORPUSCULAR HEMOGLOBIN 27.4 pg (27.0-31.0); MEAN PLATELET VOLUME 6.8 fL (7.2-11.7); MONO # 0.5 K/uL (0.0-0.8); MONO % 5.8 % (0.0-10.0); NEUT # 8.3 K/uL (1.8-7.0); NEUT % 88.5 % (50.0-75.0); PLATELET COUNT 169 K/uL (130-400); RBC 3.49 Mil/uL (4.40-5.90); RED CELL DISTRIBUTION WIDTH 17.3 % (11.5-14.5); WHITE BLOOD COUNT 9.4 K/uL (4.8-10.8)
[2018-11-11] MEDS ORDERED: Albuterol-Ipratrop 3 mg / 0.5 (3 ml) UD ONE (17:08)
[2018-11-11 17:20] LABS: ALB/GLOB RATIO 1.1 (1.0-2.1); ALBUMIN 3.7 g/dL (3.5-5.0); CALCIUM 8.8 mg/dl (8.6-10.4)
--- NOTE | 2018-11-11 17:26 | RAD ---
Date of service: 11/11/2018 HISTORY: Abdominal pain COMPARISON: 02/24/2018. TECHNIQUE: Chest PA and lateral FINDINGS: LINES AND TUBES: None. LUNG AND PLEURA: The lungs are well inflated and clear. No focal consolidation. No pleural effusion or pneumothorax. HEART AND MEDIASTINUM: There is persistent severe cardiomegaly. No aortic atherosclerotic calcifications present. The hilar and mediastinal contours are within normal limits. SKELETAL STRUCTURES: The bony structures are within normal limits for the patient's age. VISUALIZED UPPER ABDOMEN: Normal. OTHER FINDINGS: None. IMPRESSION: No active pulmonary disease.
[2018-11-11 17:32] LABS: TROPONIN I 0.021 ng/mL (0.00-0.120)
--- NOTE | 2018-11-11 18:04 | C.PDOC ---
History Of Present Illness 63 year old male with a history of hypertension, cardiac stent, and arthritis presents to the emergency department with complaints of chronic arthritic pain, worsening four days ago. Patient states that he takes Prednisone 5mg and Me loxicam. Patient complains of nasal congestion. Patient also reports developing left-sided chest pain and epigastric abdominal pain while waiting in the ED. He denies difficulty breathing or radiation of pain. Patient reports using his inhaler at home for the past few days. Time Seen by Provider: 11/11/18 15:30 Chief Complaint (Nursing): Chest Pain History Per: Patient History/Exam Limitations: no limitations Onset/Duration Of Symptoms: Days (4) Current Symptoms Are (Timing): Still Present Quality: "Pain" Past Medical History Reviewed: Historical Data, Nursing Documentation, Vital Signs Vital Signs: Last Vital Signs Temp 98 F 11/11/18 15:41 Pulse 86 11/11/18 15:41 Resp 18 11/11/18 15:41 BP 127/85 11/11/18 15:41 Pulse Ox 96 11/11/18 15:41 - Medical History PMH: Arthritis, Asthma, Gastritis, HTN, Kidney Stones, Peripheral Edema, Chronic Kidney Disease, Rheumatoid Arthritis Surgical History: Coronary Stent - [facility] CORONAR ARTERIOGR-2 CATH (01/30/02) LEFT HEART CARDIAC CATH (01/30/02) LT HEART ANGIOCARDIOGRAM (01/30/02) Family History: States: No Known Family Hx - Social History Hx Tobacco Use: No Hx Alcohol Use: No Hx Substance Use: No - Immunization History Hx Tetanus Toxoid Vaccination: No Hx Influenza Vaccination: Yes Hx Pneumococcal Vaccination: No Review Of Systems Except As Marked, All Systems Reviewed And Found Negative. (`) Cardiovascular: Positive for: Chest Pain Gastrointestinal: Positive for: Abdominal Pain Physical Exam - Physical Exam Appears: Non-toxic, No Acute Distress Skin: Normal Color, Warm, Dry Head: Atraumatic, Normacephalic Eye(s): bilateral: Normal Inspection, PERRL, EOMI Oral Mucosa: Moist Neck: Normal, Supple Chest: Symmetrical, No Tenderness Cardiovascular: Rhythm Regular, No Murmur Respiratory: Decreased Breath Sounds, No Rales, No Rhonchi, No Wheezing Gastrointestinal/Abdominal: Soft, No Tenderness, No Guarding, No Rebound, Other (obese) Extremity: Swelling (b/l 2+ pitting edema) Neurological/Psych: Oriented x3, Normal Speech, Normal Cognition ED Course And Treatment - Laboratory Results Result Diagrams: 11/11/18 17:05 11/11/18 17:05 Lab Results: Troponin I 0.0210 ng/mL (0.00-0.120) 11/11/18 17:05 NT-Pro-B Natriuret Pep 2280 pg/mL (0-900) H 11/11/18 17:05 Total Bilirubin 0.4 mg/dL (0.2-1.3) 11/11/18 17:05 AST 15 U/L (17-59) L D 11/11/18 17:05 ALT 12 U/L (21-72) L D 11/11/18 17:05 Alkaline Phosphatase 95 U/L (38-126) 11/11/18 17:05 Total Protein 7.1 g/dL (6.3-8.3) 11/11/18 17:05 Albumin 3.7 g/dL (3.5-5.0) 11/11/18 17:05 Globulin 3.4 gm/dL (2.2-3.9) 11/11/18 17:05 Albumin/Globulin Ratio 1.1 (1.0-2.1) 11/11/18 17:05 Lipase 88 U/L (23-300) 11/11/18 17:05 Interpretation Of ECG: Normal sinus rhythm at 68bpm, normal intervals, normal axis, no ST elevation, non-specific T wave changes, LVH. O2 Sat by Pulse Oximetry: 96 (RA) Pulse Ox Interpretation: Normal Medical Decision Making Medical Decision Making: Plan: EKG Chemistry CBC CXR Aspirin 325mg PO Solu-Medrol 125mg IV Urinalysis 17:55 Spoke to patient's PCP Dr. Drew, discussed lab results. Dr. Drew states that the patient is at baseline for kidney function, however will admit to OBS. Disposition Counseled Patient/Family Regarding: Studies Performed, Diagnosis - Disposition Disposition: HOSPITALIZED Disposition Time: 18:02 Condition: STABLE - Clinical Impression Clinical Impression: Chest pain, Anemia, Dyspnea, CKD (chronic kidney disease), Elevated brain natriuretic peptide (BNP) level - Scribe Statement The provider has reviewed the documentation as recorded by the Scribe (Giovanny Mulligan) Provider Attestation: All medical record entries made by the Scribe were at my direction and personally dictated by me. I have reviewed the chart and agree that the record accurately reflects my personal performance of the history, physical exam, medical decision making, and the department course for this patient. I have also personally directed, reviewed, and agree with the discharge instructions and disposition.
[2018-11-11 18:38] LABS: BANDS 2 % (0-2); LYMPHOCYTE 5 % (20-40); MONOCYTE 2 % (0-10); NEUTROPHIL 91 % (50-75); TOTAL CELLS COUNTED 100
[2018-11-11 18:39] LABS: ANISOCYTOSIS SLIGHT; PLATELET ESTIMATE NORMAL (NORMAL)
[2018-11-11] MEDS ORDERED: Albuterol HFA 90 mcg/actuation (8 g) IH PRN (18:44)
[2018-11-11 19:10] LABS: SQUAMOUS EPITHIAL < 1 /hpf (0-5); URINE BACTERIA RARE (<OCC); URINE BILIRUBIN NEGATIVE (NEGATIVE); URINE BLOOD NEGATIVE (NEGATIVE); URINE CLARITY Clear (Clear); URINE COLOR Yellow (YELLOW); URINE GLUCOSE (UA) NORMAL (Normal); URINE LEUKOCYTE ESTERASE NEG Leu/uL (Negative); URINE PROTEIN 2+ mg/dL (NEGATIVE); URINE UROBILINOGEN NORMAL mg/dL (0.2-1.0)
[2018-11-11 19:16] LABS: BARBITURATES, UR NEGATIVE (NEGATIVE); BENZODIAZEPINES, UR NEGATIVE (NEGATIVE); OPIATES, UR NEGATIVE (NEGATIVE); PHENCYCLIDINE, UR NEGATIVE (NEGATIVE)
[2018-11-11] MEDS: (Novolin R) Insulin Human Regular 100 units/ml vial SC SCH (21:58)
--- NOTE | 2018-11-11 22:23 | CP.PCM.HP ---
Past Patient History - Infectious Disease Hx of Infectious Diseases: None - Past Medical History & Family History Past Medical History?: Yes - Past Social History Smoking Status: Never Smoked - CARDIAC Hx Hypertension: Yes Hx Peripheral Edema: Yes - PULMONARY Hx Asthma: Yes - NEUROLOGICAL Hx Neurological Disorder: No - HEENT Hx HEENT Problems: No - RENAL Hx Chronic Kidney Disease: Yes Hx Kidney Stones: Yes - ENDOCRINE/METABOLIC Hx Endocrine Disorders: Yes Hx Diabetes Mellitus Type 2: Yes - HEMATOLOGICAL/ONCOLOGICAL Hx Blood Disorders: Yes Hx Hepatitis C: Yes (1999) - INTEGUMENTARY Hx Dermatological Problems: No - MUSCULOSKELETAL/RHEUMATOLOGICAL Hx Arthritis: Yes Hx Rheumatoid Arthritis: Yes - GASTROINTESTINAL Hx Gastritis: Yes - GENITOURINARY/GYNECOLOGICAL Hx Genitourinary Disorders: No - PSYCHIATRIC Hx Substance Use: No - SURGICAL HISTORY Hx Coronary Stent: Yes - ANESTHESIA Hx Anesthesia: Yes Hx Anesthesia Reactions: No Meds Allergies/Adverse Reactions: Allergies Allergy/AdvReac Type Severity Reaction Status Date / Time No Known Allergies Allergy Verified 07/06/17 18:16 Results - Vital Signs Recent Vital Signs: Last Vital Signs Temp 98.0 F 11/11/18 21:30 Pulse 68 11/11/18 21:30 Resp 16 11/11/18 21:30 BP 119/83 11/11/18 21:30 Pulse Ox 100 11/11/18 21:30 - Labs Result Diagrams: 11/11/18 17:05 11/11/18 17:05 Labs: Laboratory Results - last 24 hr 11/11/18 11/11/18 11/11/18 17:05 17:05 18:56 WBC 9.4 RBC 3.49 L Hgb 9.6 L Hct 29.8 L MCV 85.5 D MCH 27.4 MCHC 32.0 L RDW 17.3 H Plt Count 169 MPV 6.8 L Neut % (Auto) 88.5 H Lymph % (Auto) 5.3 L [place] % (Auto) 5.8 Eos % (Auto) 0.2 Baso % (Auto) 0.2 Neut # (Auto) 8.3 H Lymph # (Auto) 0.5 L [place] # (Auto) 0.5 Eos # (Auto) 0.0 Baso # (Auto) 0.0 Neutrophils % (Manual) 91 H Band Neutrophils % 2 Lymphocytes % (Manual) 5 L Monocytes % (Manual) 2 Platelet Estimate Normal Anisocytosis (manual) Slight Sodium 138 Potassium 5.3 H Chloride 102 Carbon Dioxide 28 Anion Gap 13 BUN 49 H Creatinine 2.7 H Est GFR ( Amer) 29 Est GFR (Non-Af Amer) 24 POC Glucose (mg/dL) Random Glucose 109 Calcium 8.8 Total Bilirubin 0.4 AST 15 L D ALT 12 L D Alkaline Phosphatase 95 Troponin I 0.0210 NT-Pro-B Natriuret Pep 2280 H Total Protein 7.1 Albumin 3.7 Globulin 3.4 Albumin/Globulin Ratio 1.1 Lipase 88 Urine Color Yellow Urine Clarity Clear Urine pH 7.0 Ur Specific [place] 1.011 Urine Protein 2+ H Urine Glucose (UA) Normal Urine Ketones Negative Urine Blood Negative Urine Nitrate Negative Urine Bilirubin Negative Urine Urobilinogen Normal Ur Leukocyte Esterase Neg Urine WBC (Auto) 1 Urine RBC (Auto) < 1 Ur Squamous Epith Cells < 1 Urine Bacteria Rare Urine Opiates Screen Urine Methadone Screen Ur Barbiturates Screen Ur Phencyclidine Scrn Ur Amphetamines Screen U Benzodiazepines Scrn U Oth Cocaine Metabols U Cannabinoids Screen 11/11/18 11/11/18 18:56 21:08 WBC RBC Hgb Hct MCV MCH MCHC RDW Plt Count MPV Neut % (Auto) Lymph % (Auto) [place] % (Auto) Eos % (Auto) Baso % (Auto) Neut # (Auto) Lymph # (Auto) [place] # (Auto) Eos # (Auto) Baso # (Auto) Neutrophils % (Manual) Band Neutrophils % Lymphocytes % (Manual) Monocytes % (Manual) Platelet Estimate Anisocytosis (manual) Sodium Potassium Chloride Carbon Dioxide Anion Gap BUN Creatinine Est GFR ( Amer) Est GFR (Non-Af Amer) POC Glucose (mg/dL) 108 Random Glucose Calcium Total Bilirubin AST ALT Alkaline Phosphatase Troponin I NT-Pro-B Natriuret Pep Total Protein Albumin Globulin Albumin/Globulin Ratio Lipase Urine Color Urine Clarity Urine pH Ur Specific [place] Urine Protein Urine Glucose (UA) Urine Ketones Urine Blood Urine Nitrate Urine Bilirubin Urine Urobilinogen Ur Leukocyte Esterase Urine WBC (Auto) Urine RBC (Auto) Ur Squamous Epith Cells Urine Bacteria Urine Opiates Screen Negative Urine Methadone Screen Positive H Ur Barbiturates Screen Negative Ur Phencyclidine Scrn Negative Ur Amphetamines Screen Negative U Benzodiazepines Scrn Negative U Oth Cocaine Metabols Negative U Cannabinoids Screen Negative
[2018-11-11 23:43] LABS: COMPLEMENT C4 31.8 mg/dL (14.0-44.0)
[2018-11-11 23:48] LABS: CK-MB 1.78 ng/mL (0.0-3.38); TROPONIN I 0.02 ng/mL (0.00-0.120)
[2018-11-12 00:08] LABS: HEPATITIS B SURFACE AG Negative (NEGATIVE)
[2018-11-12 00:13] LABS: HEPATITIS B CORE AB NEGATIVE (NEGATIVE)
[2018-11-12 01:59] LABS: HEPATITIS A IGM REACTIVE (NEGATIVE)
[2018-11-12 02:00] LABS: HEPATITIS C ANTIBODY Reactive (NEGATIVE)
[2018-11-12 03:18] LABS: HEPATITIS A TOTAL Antibody Positive (NEGATIVE)
[2018-11-12 05:56] LABS: CK-MB 1.85 ng/mL (0.0-3.38); TROPONIN I 0.02 ng/mL (0.00-0.120)
--- NOTE | 2018-11-12 07:23 | HP ---
CHIEF COMPLAINT: Chest pain. HISTORY OF PRESENT ILLNESS: This is a 63-year-old male, well known to me with history of opioid dependence, on methadone, severe rheumatoid arthritis, hypertension, CKD stage 4, type 2 diabetes, morbid obesity, chronic lower extremity edema due to venous insufficiency. He is compliant with his diet, medication, and followup. The patient is chronically sick with history of multiple emergency room and hospital visits. The patient claims to be compliant and he came in because of right hand swelling, intense pain in the right hand, and he has joint pain in the remaining joints including left hand, shoulder, knees, hip and back, but at the same time, the patient also complained of chest pain while he was in the ER and the patient is being admitted for observation. He denies any cough, sore throat, or runny nose. He denies any nausea or vomiting. He denies any polyuria, polydipsia, or polyphagia. He has itching skin. He has malaise and fatigue. He has hypersomnolence, and he snores. He feels anxious and depressed. There is no history of abdominal pain, nausea, vomiting, or diarrhea. He denies any skin rash, itchy eyes, or itchy nose. PAST MEDICAL HISTORY: CKD, type 2 diabetes, morbid obesity, opioid dependence, hypertension, and rheumatoid arthritis. SOCIAL HISTORY: He is an ex-substance abuser. He denies smoking or drinking. MEDICATIONS: Zyloprim, alogliptin, Ventolin HFA, multivitamin, Mobic, and folic acid. PHYSICAL EXAMINATION: GENERAL: An elderly male, in mild distress. No apparent tremor. VITAL SIGNS: Blood pressure 130/81, pulse 65, respiratory rate 16, and temperature 98. SKIN: Warm, senile turgor. No bruises. No purpura. HEENT: Atraumatic and normocephalic. Negative pallor. Negative jaundice. Extraocular movements are intact. NECK: Supple. No JVD. No lymph node. No thyromegaly. No carotid bruit. CHEST WALL: Bilateral symmetrical expansion. LUNGS: Clear. No rales. No rhonchi. CARDIOVASCULAR SYSTEM: PMI not localized. S1 and S2, regular. ABDOMEN: Soft, nontender. Bowel sounds are positive. EXTREMITIES: The patient has nonpitting +4 skin edema, chronic changes, and nail discoloration. CENTRAL NERVOUS SYSTEM: Awake, alert, oriented x3. ASSESSMENT: 1. Chest pain, rule out myocardial infarction. 2. Rheumatoid arthritis, with acute exacerbation. 3. Chronic kidney disease. 4. Diabetes. 5. Hypertension. PLAN: Admit. Detailed orders are written. Seen and examined. Albaro Drew MD
[2018-11-12] MEDS: (Novolin R) Insulin Human Regular 100 units/ml vial SC SCH ×4 (07:35→21:38)
[2018-11-12] MEDS ORDERED: (Novolin R) Insulin Human Regular 100 units/ml vial ONE (07:59)
[2018-11-12] MEDS ORDERED: Fluticasone-Vilanterol 100/25mcg Diskus INH SCH (08:00)
--- NOTE | 2018-11-12 09:46 | US ---
Date of service: 11/12/2018 PROCEDURE: Ultrasound of the Kidneys HISTORY: ckd, for kidney size COMPARISON: None available. TECHNIQUE: Sonogram of the kidneys. FINDINGS: RIGHT KIDNEY: Measures: 11.4 cm. Normal in size, contour and echogenicity. Multiple simple cortical cysts. Upper pole, 2.9 x 2.2 x 2.8 cm. Mid renal, 1.9 x 1.8 x 2.0 cm Lower pole, 4.8 x 2.7 x 3.8 cm. No solid mass. No calculus. No hydronephrosis. LEFT KIDNEY: Measures: 12.4 cm. Normal in size, contour and echogenicity. No calculus or hydronephrosis. Multiple simple cysts: Upper pole, 2.3 x 1.8 x 1.8 cm Mid renal, 1.8 x 2.6 X 2.1 cm Lower pole 2.3 x 2.1 x 2.3 cm. OTHER FINDINGS: None. IMPRESSION: Multiple bilateral simple renal cysts. Otherwise unremarkable.
[2018-11-12] MEDS: Pantoprazole 40 mg EC Tab PO SCH (10:38)
--- NOTE | 2018-11-12 12:27 | CP.PCM.CON ---
History of Present Illness - History of Present Illness History of Present Illness: pt is seen and examined, full consult is dictated #[id number] Past Patient History - Infectious Disease Hx of Infectious Diseases: None - Past Medical History & Family History Past Medical History?: Yes - Past Social History Smoking Status: Never Smoked - CARDIAC Hx Hypertension: Yes - PULMONARY Hx Asthma: Yes - NEUROLOGICAL Hx Neurological Disorder: No - HEENT Hx HEENT Problems: No - RENAL Hx Chronic Kidney Disease: Yes Hx Kidney Stones: Yes - ENDOCRINE/METABOLIC Hx Diabetes Mellitus Type 2: Yes - HEMATOLOGICAL/ONCOLOGICAL Hx Blood Disorders: Yes Hx Hepatitis C: Yes (1999) - INTEGUMENTARY Hx Dermatological Problems: No - MUSCULOSKELETAL/RHEUMATOLOGICAL Hx Arthritis: Yes Hx Rheumatoid Arthritis: Yes - GASTROINTESTINAL Hx Gastritis: Yes - GENITOURINARY/GYNECOLOGICAL Hx Genitourinary Disorders: No - PSYCHIATRIC Hx Substance Use: No - SURGICAL HISTORY Hx Coronary Stent: Yes - ANESTHESIA Hx Anesthesia: Yes Hx Anesthesia Reactions: No Meds Allergies/Adverse Reactions: Allergies Allergy/AdvReac Type Severity Reaction Status Date / Time No Known Allergies Allergy Verified 07/06/17 18:16 - Medications Medications: Current Medications Albuterol (Ventolin Hfa 90 Mcg/Actuation (8 G)) 2 puff IH Q6 PRN PRN Reason: Wheezing Allopurinol (Zyloprim) 100 mg PO DAILY [facility] Last Admin: 11/12/18 10:39 Dose: 100 mg Aspirin (Ecotrin) 81 mg PO DAILY [facility] Last Admin: 11/12/18 10:40 Dose: 81 mg Carvedilol (Coreg) 3.125 mg PO BID [facility] Last Admin: 11/12/18 10:38 Dose: 3.125 mg Enalapril Maleate (Vasotec) 10 mg PO DAILY [facility] Last Admin: 11/12/18 10:40 Dose: 10 mg Fluticasone/Vilanterol (Breo Ellipta 100-25 Mcg Inh) 1 puff INH RQ24 [facility] Furosemide (Lasix) 20 mg PO DAILY [facility] Last Admin: 11/12/18 10:39 Dose: 20 mg Heparin Sodium (Porcine) (Heparin) 5,000 units SC Q8 [facility] Last Admin: 11/12/18 06:09 Dose: 5,000 units Hydralazine HCl (Apresoline) 25 mg PO Q8 [facility] Last Admin: 11/12/18 06:09 Dose: 25 mg Insulin Human Regular (Novolin R) 0 unit SC ACHS [facility]; Protocol Last Admin: 11/12/18 07:35 Dose: 1 unit Methadone HCl (Methadone) 30 mg PO DAILY [facility] Last Admin: 11/12/18 10:39 Dose: 30 mg Methadone HCl (Methadone) 5 mg PO DAILY [facility] Last Admin: 11/12/18 10:39 Dose: 5 mg Methotrexate (Methotrexate) 7.5 mg PO QWK [facility] Last Admin: 11/12/18 11:05 Dose: 7.5 mg Pantoprazole Sodium (Protonix Ec Tab) 40 mg PO DAILY [facility] Last Admin: 11/12/18 10:38 Dose: 40 mg Prednisone (Prednisone Tab) 5 mg PO DAILY [facility] Prednisone (Prednisone Tab) 40 mg PO DAILY [facility] Last Admin: 11/12/18 10:39 Dose: 40 mg Sitagliptin Phosphate (Januvia) 25 mg PO DAILY [facility] Last Admin: 11/12/18 10:38 Dose: 25 mg Results - Vital Signs Recent Vital Signs: Last Vital Signs Temp 98.1 F 11/12/18 09:00 Pulse 70 11/12/18 10:37 Resp 18 11/12/18 09:00 BP 140/75 11/12/18 10:40 Pulse Ox 97 11/12/18 09:00 - Labs Result Diagrams: 11/11/18 17:05 11/11/18 17:05 Labs: Laboratory Results - last 24 hr 11/11/18 11/11/18 11/11/18 17:05 17:05 18:56 WBC 9.4 RBC 3.49 L Hgb 9.6 L Hct 29.8 L MCV 85.5 D MCH 27.4 MCHC 32.0 L RDW 17.3 H Plt Count 169 MPV 6.8 L Neut % (Auto) 88.5 H Lymph % (Auto) 5.3 L [place] % (Auto) 5.8 Eos % (Auto) 0.2 Baso % (Auto) 0.2 Neut # (Auto) 8.3 H Lymph # (Auto) 0.5 L [place] # (Auto) 0.5 Eos # (Auto) 0.0 Baso # (Auto) 0.0 Neutrophils % (Manual) 91 H Band Neutrophils % 2 Lymphocytes % (Manual) 5 L Monocytes % (Manual) 2 Platelet Estimate Normal Anisocytosis (manual) Slight Sodium 138 Potassium 5.3 H Chloride 102 Carbon Dioxide 28 Anion Gap 13 BUN 49 H Creatinine 2.7 H Est GFR ( Amer) 29 Est GFR (Non-Af Amer) 24 POC Glucose (mg/dL) Random Glucose 109 Calcium 8.8 Phosphorus Total Bilirubin 0.4 AST 15 L D ALT 12 L D Alkaline Phosphatase 95 Total Creatine Kinase CK-MB (Mass) Troponin I 0.0210 NT-Pro-B Natriuret Pep 2280 H Total Protein 7.1 Albumin 3.7 Globulin 3.4 Albumin/Globulin Ratio 1.1 Lipase 88 Urine Color Yellow Urine Clarity Clear Urine pH 7.0 Ur Specific [place] 1.011 Urine Protein 2+ H Urine Glucose (UA) Normal Urine Ketones Negative Urine Blood Negative Urine Nitrate Negative Urine Bilirubin Negative Urine Urobilinogen Normal Ur Leukocyte Esterase Neg Urine WBC (Auto) 1 Urine RBC (Auto) < 1 Ur Squamous Epith Cells < 1 Urine Bacteria Rare Urine Opiates Screen Urine Methadone Screen Ur Barbiturates Screen Ur Phencyclidine Scrn Ur Amphetamines Screen U Benzodiazepines Scrn U Oth Cocaine Metabols U Cannabinoids Screen Complement C3 Complement C4 Hepatitis A IgM Ab Hepatitis A Ab Total Hep Bs Antigen Hep B Core IgM Ab Hepatitis C Antibody 11/11/18 11/11/18 11/11/18 18:56 21:08 23:20 WBC RBC Hgb Hct MCV MCH MCHC RDW Plt Count MPV Neut % (Auto) Lymph % (Auto) [place] % (Auto) Eos % (Auto) Baso % (Auto) Neut # (Auto) Lymph # (Auto) [place] # (Auto) Eos # (Auto) Baso # (Auto) Neutrophils % (Manual) Band Neutrophils % Lymphocytes % (Manual) Monocytes % (Manual) Platelet Estimate Anisocytosis (manual) Sodium Potassium Chloride Carbon Dioxide Anion Gap BUN Creatinine Est GFR ( Amer) Est GFR (Non-Af Amer) POC Glucose (mg/dL) 108 Random Glucose Calcium Phosphorus 4.3 Total Bilirubin AST ALT Alkaline Phosphatase Total Creatine Kinase CK-MB (Mass) Troponin I NT-Pro-B Natriuret Pep Total Protein Albumin Globulin Albumin/Globulin Ratio Lipase Urine Color Urine Clarity Urine pH Ur Specific [place] Urine Protein Urine Glucose (UA) Urine Ketones Urine Blood Urine Nitrate Urine Bilirubin Urine Urobilinogen Ur Leukocyte Esterase Urine WBC (Auto) Urine RBC (Auto) Ur Squamous Epith Cells Urine Bacteria Urine Opiates Screen Negative Urine Methadone Screen Positive H Ur Barbiturates Screen Negative Ur Phencyclidine Scrn Negative Ur Amphetamines Screen Negative U Benzodiazepines Scrn Negative U Oth Cocaine Metabols Negative U Cannabinoids Screen Negative Complement C3 Complement C4 Hepatitis A IgM Ab Hepatitis A Ab Total Antibody positive Hep Bs Antigen Hep B Core IgM Ab Hepatitis C Antibody 11/11/18 11/11/18 11/11/18 23:20 23:20 23:25 WBC RBC Hgb Hct MCV MCH MCHC RDW Plt Count MPV Neut % (Auto) Lymph % (Auto) [place] % (Auto) Eos % (Auto) Baso % (Auto) Neut # (Auto) Lymph # (Auto) [place] # (Auto) Eos # (Auto) Baso # (Auto) Neutrophils % (Manual) Band Neutrophils % Lymphocytes % (Manual) Monocytes % (Manual) Platelet Estimate Anisocytosis (manual) Sodium Potassium Chloride Carbon Dioxide Anion Gap BUN Creatinine Est GFR ( Amer) Est GFR (Non-Af Amer) POC Glucose (mg/dL) Random Glucose Calcium Phosphorus Total Bilirubin AST ALT Alkaline Phosphatase Total Creatine Kinase 42 L CK-MB (Mass) 1.78 Troponin I 0.0200 NT-Pro-B Natriuret Pep Total Protein Albumin Globulin Albumin/Globulin Ratio Lipase Urine Color Urine Clarity Urine pH Ur Specific [place] Urine Protein Urine Glucose (UA) Urine Ketones Urine Blood Urine Nitrate Urine Bilirubin Urine Urobilinogen Ur Leukocyte Esterase Urine WBC (Auto) Urine RBC (Auto) Ur Squamous Epith Cells Urine Bacteria Urine Opiates Screen Urine Methadone Screen Ur Barbiturates Screen Ur Phencyclidine Scrn Ur Amphetamines Screen U Benzodiazepines Scrn U Oth Cocaine Metabols U Cannabinoids Screen Complement C3 91.0 Complement C4 31.8 Hepatitis A IgM Ab Reactive Hepatitis A Ab Total Hep Bs Antigen Negative Hep B Core IgM Ab Negative Hepatitis C Antibody Reactive 11/12/18 11/12/18 11/12/18 05:21 07:34 11:13 WBC RBC Hgb Hct MCV MCH MCHC RDW Plt Count MPV Neut % (Auto) Lymph % (Auto) [place] % (Auto) Eos % (Auto) Baso % (Auto) Neut # (Auto) Lymph # (Auto) [place] # (Auto) Eos # (Auto) Baso # (Auto) Neutrophils % (Manual) Band Neutrophils % Lymphocytes % (Manual) Monocytes % (Manual) Platelet Estimate Anisocytosis (manual) Sodium Potassium Chloride Carbon Dioxide Anion Gap BUN Creatinine Est GFR ( Amer) Est GFR (Non-Af Amer) POC Glucose (mg/dL) 170 H 177 H Random Glucose Calcium Phosphorus Total Bilirubin AST ALT Alkaline Phosphatase Total Creatine Kinase 99 CK-MB (Mass) 1.85 Troponin I 0.0200 NT-Pro-B Natriuret Pep Total Protein Albumin Globulin Albumin/Globulin Ratio Lipase Urine Color Urine Clarity Urine pH Ur Specific [place] Urine Protein Urine Glucose (UA) Urine Ketones Urine Blood Urine Nitrate Urine Bilirubin Urine Urobilinogen Ur Leukocyte Esterase Urine WBC (Auto) Urine RBC (Auto) Ur Squamous Epith Cells Urine Bacteria Urine Opiates Screen Urine Methadone Screen Ur Barbiturates Screen Ur Phencyclidine Scrn Ur Amphetamines Screen U Benzodiazepines Scrn U Oth Cocaine Metabols U Cannabinoids Screen Complement C3 Complement C4 Hepatitis A IgM Ab Hepatitis A Ab Total Hep Bs Antigen Hep B Core IgM Ab Hepatitis C Antibody
[2018-11-12] MEDS ORDERED: Albuterol 0.083% Inhal Sol (2.5 mg/3 mL) UD INH PRN (12:49)
[2018-11-12 15:55] VITALS: RESP 20
--- NOTE | 2018-11-12 21:26 | CARD ---
APPROVED REPORT Date of service: 11/11/2018 EKG Measurement Heart [id number] <Conclusion> Normal sinus rhythm with sinus arrhythmia Voltage criteria for left ventricular hypertrophy Nonspecific ST and T wave abnormality Abnormal ECG
--- NOTE | 2018-11-12 22:39 | CP.PCM.PN ---
Subjective - Subjective Subjective: dictated Objective - Vital Signs/Intake and Output Vital Signs (last 24 hours): Temp Pulse Resp BP Pulse Ox 97.9 F 62 20 120/80 96 11/12/18 15:00 11/12/18 21:48 11/12/18 15:00 11/12/18 21:18 11/12/18 15:00 - Medications Medications: Current Medications Albuterol (Ventolin Hfa 90 Mcg/Actuation (8 G)) 2 puff IH Q6 PRN PRN Reason: Wheezing Albuterol Sulfate (Albuterol 0.083% Inhal Maria Ines (2.5 Mg/3 Ml) Ud) 2.5 mg INH RQ6 PRN PRN Reason: Shortness of Breath Allopurinol (Zyloprim) 100 mg PO DAILY [facility] Last Admin: 11/12/18 10:39 Dose: 100 mg Aspirin (Ecotrin) 81 mg PO DAILY [facility] Last Admin: 11/12/18 10:40 Dose: 81 mg Carvedilol (Coreg) 3.125 mg PO BID [facility] Last Admin: 11/12/18 17:03 Dose: 3.125 mg Enalapril Maleate (Vasotec) 10 mg PO DAILY [facility] Last Admin: 11/12/18 10:40 Dose: 10 mg Fluticasone/Vilanterol (Breo Ellipta 100-25 Mcg Inh) 1 puff INH RQ24 [facility] Furosemide (Lasix) 20 mg PO DAILY [facility] Last Admin: 11/12/18 10:39 Dose: 20 mg Heparin Sodium (Porcine) (Heparin) 5,000 units SC Q8 [facility] Last Admin: 11/12/18 21:19 Dose: 5,000 units Hydralazine HCl (Apresoline) 25 mg PO Q8 [facility] Last Admin: 11/12/18 21:19 Dose: 25 mg Insulin Human Regular (Novolin R) 0 unit SC ACHS [facility]; Protocol Last Admin: 11/12/18 21:38 Dose: Not Given Methadone HCl (Methadone) 30 mg PO DAILY [facility] Last Admin: 11/12/18 10:39 Dose: 30 mg Methadone HCl (Methadone) 5 mg PO DAILY [facility] Last Admin: 11/12/18 10:39 Dose: 5 mg Methotrexate (Methotrexate) 7.5 mg PO QWK [facility] Last Admin: 11/12/18 11:05 Dose: 7.5 mg Pantoprazole Sodium (Protonix Ec Tab) 40 mg PO DAILY [facility] Last Admin: 11/12/18 10:38 Dose: 40 mg Prednisone (Prednisone Tab) 5 mg PO DAILY [facility] Prednisone (Prednisone Tab) 40 mg PO DAILY [facility] Last Admin: 11/12/18 10:39 Dose: 40 mg Sitagliptin Phosphate (Januvia) 25 mg PO DAILY [facility] Last Admin: 11/12/18 10:38 Dose: 25 mg - Labs Labs: 11/11/18 17:05 11/11/18 17:05
--- NOTE | 2018-11-13 03:04 | PN ---
DATE: 11/12/2018 SUBJECTIVE: The patient is afebrile, decreased chest pain. No cough. No shortness of breath. His swelling in the right hand has decreased. PHYSICAL EXAMINATION: VITAL SIGNS: Blood pressure 120/80, pulse 58, respiratory rate 20, temperature 97.9. LUNGS: Clear. CARDIOVASCULAR SYSTEM: S1 and S2 regular. ABDOMEN: Soft. ASSESSMENT: 1. Exacerbation of rheumatoid arthritis. 2. Chest pain, rule out myocardial infarction. 3. Chronic kidney disease. 4. Type 2 diabetes. 5. Opiate dependence on methadone. PLAN: Continue prednisone, cardiac enzymes. Monitor the patient. Albaro Drew MD
--- NOTE | 2018-11-13 03:25 | CON ---
DATE: 11/12/2018 REASON FOR CONSULTATION: Abnormal EKG and history of coronary artery disease. HISTORY OF PRESENT ILLNESS: The patient is a 63-year-old male who has a history of rheumatoid arthritis, history of chronic stenting few years ago, presented because of generalized joint pain as well as leg swelling. The patient did report to the emergency room physician with left-sided chest pain, but currently pain free. SOCIAL HISTORY: Nonsmoker. Nondrinker. MEDICATIONS: Hydralazine 25 mg every 8 hours, Coreg 3.125 mg once a day, aspirin 81 mg once a day, Lasix 20 mg p.o. once a day, methadone 30 mg once a day, methotrexate 7.5 mg weekly, prednisone 40 mg once a day, Vasotec 10 mg once a day, Zyloprim 100 mg daily, Ventolin inhaler 2 puffs every 6 hours. REVIEW OF SYSTEMS: No fever or chills. No dizziness or syncope. PHYSICAL EXAMINATION: GENERAL: The patient is a middle-aged male, who does not appear to be in acute distress. VITAL SIGNS: Blood pressure 140/86, heart rate 72, temperature 98.1, and respirations 20. HEENT: Pale conjunctivae. CHEST: Diffuse bilateral rhonchi. HEART: S1 and S2, regular. EXTREMITIES: 2+ pitting edema. LABORATORY DATA: Urine drug screen is positive for methadone. SMA-7; sodium 138, potassium 5.3, chloride 102, CO2 of 28, glucose 109, BUN 49, and creatinine 2.7. Three sets of troponins are negative. Hemoglobin and hematocrit 9.6 and 29.8. White count and platelet count are within normal limits. Hepatitis C antibody is reactive. EKG revealed sinus rhythm at a rate of 68, LVH by voltage, nonspecific T-wave changes. ASSESSMENT: 1. Atypical chest pain, myocardial infarction is ruled out. 2. History of chronic stenting few years ago. 3. Rheumatoid arthritis. 4. Chronic renal insufficiency. 5. Rule out deep venous thrombosis of either lower extremities. RECOMMENDATIONS: Continue current subcutaneous heparin 5000 units every 8 hours, aspirin 81 mg once a day, Coreg 3.125 mg twice a day, hydralazine 25 mg every 8 hours, Lasix 20 mg p.o. once a day, prednisone 5 mg once a day, mg once a day. Obtain an echocardiogram, venous Doppler of lower extremities as well as serum D-dimer. Miguel Oscar MD
[2018-11-13] MEDS: (Novolin R) Insulin Human Regular 100 units/ml vial SC SCH ×3 (07:35→18:28)
--- NOTE | 2018-11-13 08:42 | CON ---
DATE: 11/12/2018 LOCATION: The patient is located in room 569, bed B. REQUESTED BY: Albaro Drew MD REASON FOR CONSULTATION: Increased BUN and creatinine, for further evaluation. HISTORY OF PRESENT ILLNESS: Mr. Rojas is a 63-year-old elderly male with a past medical history significant for hypertension for long time, rheumatoid arthritis, coronary artery disease, status post stent placement, asthma, diabetes, hyperlipidemia, status post right hip surgery in 1999, who was admitted with chief complaints of pain in both hands and knees and also chest discomfort. The patient claims he was taking prednisone 5 mg and meloxicam, following with a piano bench assembler, Dr. Edwards. Denies any fever. Denies any cough. Does complain of shortness of breath. Denies any nausea, vomiting, diarrhea. The patient does complain of swelling of the legs for long time. The patient is not able to give much information about the chest discomfort, complains mostly the joint pains. Renal consult requested for evaluation of increased BUN and creatinine. PAST MEDICAL HISTORY: Significant for hypertension for long time, borderline diabetes, coronary artery disease, status post stent placement about 3-4 years ago, hyperlipidemia, asthma, and rheumatoid arthritis with deformity of the metatarsophalangeal joints. PAST SURGICAL HISTORY: Status post right hip surgery. ALLERGIES: NO KNOWN DRUG ALLERGIES. 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 PERSONAL HISTORY: He has two daughters. FAMILY HISTORY: Not significant. CURRENT MEDICATIONS: Include as follows: Albuterol inhaler every 6 hours, hydralazine 25 mg p.o. every 8 hours, Breo one puff every 24 hours, Coreg 3.125 mg p.o. b.i.d., aspirin 81 mg p.o. daily, subcu heparin 5000 every 8 hours, Januvia 25 mg p.o. daily, Lasix 20 mg p.o. daily, methadone 35 mg p.o. daily, methotrexate 7.5 mg weekly, Novolin R per sliding scale, prednisone 40 mg p.o. daily, enalapril 10 mg p.o. daily, and allopurinol 100 mg p.o. daily. REVIEW OF SYSTEMS: Significant for joint pains, shortness of breath, chest discomfort, and also swelling of the legs. All other review of systems are reviewed and are negative. PHYSICAL EXAMINATION: VITAL SIGNS: As follows, blood pressure 140/75, pulse 68, respirations about 20, temperature 97.9. Height 5 feet 11 inches, weight is 250 pounds. GENERAL: Mr. Rojas is a 63-year-old obese male, well-built, well-nourished, not in distress. HEENT: Pupils normal, reactive to light and accommodation. Conjunctivae pink. Sclerae anicteric. Tongue is moist and trachea is midline. LUNGS: Symmetric on both sides. Bilateral breath sounds present. No crackles. CARDIOVASCULAR SYSTEM: [place] at the fifth intercostal space, midclavicular line. S1 and S2 audible. No murmur or gallop. ABDOMEN: The patient has a ventral hernia present. Normal in appearance. Soft and tympanitic. No guarding. No rigidity. No hepatosplenomegaly. No abdominal bruits. CENTRAL NERVOUS SYSTEM: The patient is alert, awake, oriented x3. Nonfocal neuro examination. Cranial nerves II-XII grossly intact. Sensory and motor system is within normal limits. EXTREMITIES: No cyanosis, no clubbing. The patient has 2-3+ edema in both lower extremities. Chronic skin changes present. The patient also has swelling and deformity of both hands and metatarsophalangeal joint swelling. LABORATORY DATA: Include as follows: As of 11/11/2018, troponin 0.02 and 0.02. CPK 42, 99. Complement levels, C3 is 91 and C4 is 31.8. Hepatitis C antibody is reactive and hepatitis antibody total is positive, hepatitis B surface antigen negative, core antibody is negative, hepatitis C antibody is reactive. Urine toxicology screen positive for methadone. Urinalysis as of 11/11/2018, yellow, clear, pH 7, specific gravity 1.011, protein 2+, glucose normal, ketones negative, blood negative, nitrites negative, bilirubin negative, urobilinogen normal, leukocyte esterase negative, wbc 1, rbc less than 1, bacteria rare. As of 11/11/2018, serum phosphorus is 4.3. Sodium 138, potassium 5.3, chloride 102, CO2 of 28, BUN 49, creatinine 2.7, glucose 109, calcium 8.8. Total bilirubin 0.4, AST 15, ALT 12, alkaline phosphatase 95. Troponin 0.02 and proBNP is 2280, total protein 7.1, albumin is 3.7. Other laboratory data, chest x-ray as of 11/11/2018, no active pulmonary disease. As of 11/12/2018, ultrasound of the kidneys, right kidney measures 11.4 cm, left kidney measures about 12.4 cm, multiple bilateral simple renal cyst, otherwise unremarkable. Urinalysis as of 02/20/2017, 2+ protein and 05/10/2017, 2+ protein. Echocardiogram as of 07/07/2017, there is mild concentric left ventricular hypertrophy, left ventricular systolic function is normal. Ejection fraction is about 65% to 70%. Transmitral Doppler flow pattern is grade 1 abnormal relaxation pattern. There is mild to moderate aortic regurgitation. Ascending aorta is mildly dilated. ASSESSMENT: In summary, Mr. Rojas is a 63-year-old elderly male with a history of hypertension, diabetes, coronary artery disease, status post stent placement, hyperlipidemia, status post right hip surgery, rheumatoid arthritis, on methotrexate and prednisone, followed by Dr. Edwards, admitted with shortness of breath and questionable asthma, bilateral leg swelling, pain in the legs and arms, and questionable chest discomfort with troponin x3 negative, proteinuria 2+, and increased blood urea nitrogen and creatinine. 1. Renal failure, chronic kidney disease 3, most likely secondary to hypertensive nephrosclerosis, cannot rule out underlying diabetic nephropathy versus chronic glomerulonephritis. 2. Hypertension. 3. Diabetes. 4. Rheumatoid arthritis. 5. Asthma, rule out acute exacerbation of asthma. PLAN: We will also check hepatitis C viral RNA by PCR as antibody is positive and also and rheumatoid arthritis factor and titers. Continue his current medications. We will also check 24-hour urine protein creatinine, creatinine clearance and also PTH intact level. Continue to follow up with piano bench assembler as an outpatient. We will follow with you. Thank you for allowing me to participate in your patient's care. Abner Vick MD
[2018-11-13] MEDS: Pantoprazole 40 mg EC Tab PO SCH (09:06)
[2018-11-13 09:49] VITALS: PULSE 60
--- NOTE | 2018-11-13 10:51 | CP.PCM.PN ---
Subjective - Date & Time of Evaluation Date of Evaluation: 11/13/18 Time of Evaluation: 10:51 - Subjective Subjective: pt is seen and examined, follow up consult is dictated #[id number] Objective - Vital Signs/Intake and Output Vital Signs (last 24 hours): Temp Pulse Resp BP Pulse Ox 97.4 F L 60 20 127/80 100 11/13/18 07:20 11/13/18 07:20 11/13/18 07:20 11/13/18 09:33 11/13/18 07:20 Intake and Output: 11/13/18 11/13/18 06:59 18:59 Intake Total 100 Balance 100 - Medications Medications: Current Medications Albuterol (Ventolin Hfa 90 Mcg/Actuation (8 G)) 2 puff IH Q6 PRN PRN Reason: Wheezing Albuterol Sulfate (Albuterol 0.083% Inhal Maria Ines (2.5 Mg/3 Ml) Ud) 2.5 mg INH RQ6 PRN PRN Reason: Shortness of Breath Allopurinol (Zyloprim) 100 mg PO DAILY [facility] Last Admin: 11/13/18 09:06 Dose: 100 mg Aspirin (Ecotrin) 81 mg PO DAILY [facility] Last Admin: 11/13/18 09:06 Dose: 81 mg Carvedilol (Coreg) 3.125 mg PO BID [facility] Last Admin: 11/13/18 09:08 Dose: 3.125 mg Enalapril Maleate (Vasotec) 10 mg PO DAILY [facility] Last Admin: 11/13/18 09:06 Dose: 10 mg Fluticasone/Vilanterol (Breo Ellipta 100-25 Mcg Inh) 1 puff INH RQ24 [facility] Furosemide (Lasix) 20 mg PO DAILY [facility] Last Admin: 11/13/18 09:33 Dose: 20 mg Heparin Sodium (Porcine) (Heparin) 5,000 units SC Q8 [facility] Last Admin: 11/13/18 05:30 Dose: 5,000 units Hydralazine HCl (Apresoline) 25 mg PO Q8 [facility] Last Admin: 11/13/18 05:30 Dose: 25 mg Insulin Human Regular (Novolin R) 0 unit SC ACHS [facility]; Protocol Last Admin: 11/13/18 07:35 Dose: Not Given Methadone HCl (Methadone) 30 mg PO DAILY [facility] Last Admin: 01/15/19 09:10 Dose: 30 mg Methadone HCl (Methadone) 5 mg PO DAILY [facility] Last Admin: 11/13/18 09:11 Dose: 5 mg Methotrexate (Methotrexate) 7.5 mg PO QWK [facility] Last Admin: 11/12/18 11:05 Dose: 7.5 mg Pantoprazole Sodium (Protonix Ec Tab) 40 mg PO DAILY [facility] Last Admin: 11/13/18 09:06 Dose: 40 mg Prednisone (Prednisone Tab) 5 mg PO DAILY [facility] Prednisone (Prednisone Tab) 40 mg PO DAILY [facility] Last Admin: 11/13/18 09:06 Dose: 40 mg Sitagliptin Phosphate (Januvia) 25 mg PO DAILY [facility] Last Admin: 11/13/18 09:08 Dose: 25 mg - Labs Labs: 11/11/18 17:05 11/11/18 17:05
--- NOTE | 2018-11-13 13:23 | VASCLAB ---
Date of service: 11/13/2018 PROCEDURE: Lower Extremity Venous Duplex Exam. HISTORY: Leg swelling PRIORS: None. TECHNIQUE: Bilateral common femoral, femoral, popliteal and posterior tibial, peroneal and great saphenous veins were evaluated. Flow was assessed with color Doppler, compressibility, assessment of phasic flow and augmentation response. Report prepared by Inocencio Flores, JANET, RVT FINDINGS: RIGHT: 1. Common Femoral Vein: 1.1. Compressibility - Fully compressible: Thrombus - None : Flow - Phasic: Augmentation -Normal: Reflux - None. 2. Femoral Vein: 2.1. Compressibility - Fully compressible: Thrombus - None : Flow - Phasic: Augmentation -Normal: Reflux - None. 3. Popliteal Vein: 3.1. Compressibility - Fully compressible: Thrombus - None : Flow - Phasic: Augmentation -Normal: Reflux - None. 4. Posterior Tibial Vein: 4.1. Compressibility - : Thrombus - : Flow - : Augmentation -: Reflux - . 5. Peroneal Vein: 5.1. Compressibility - : Thrombus - : Flow - : Augmentation -: Reflux - . 6. Great Saphenous Vein: 6.1. Compressibility - Fully compressible: Thrombus - None: Flow - Phasic: Augmentation - Normal: Reflux - None. LEFT: 1. Common Femoral Vein: 1.1. Compressibility - Fully compressible: Thrombus - None: Flow - Phasic: Augmentation -Normal: Reflux - None. 2. Femoral Vein: 2.1. Compressibility - Fully compressible: Thrombus - None: Flow - Phasic: Augmentation -Normal: Reflux - None. 3. Popliteal Vein: 3.1. Compressibility - Fully compressible: Thrombus - None : Flow - Phasic: Augmentation -Normal: Reflux - None. 4. Posterior Tibial Vein: 4.1. Compressibility - : Thrombus - : Flow - : Augmentation -: Reflux - . 5. Peroneal Vein: 5.1. Compressibility - : Thrombus - : Flow - : Augmentation -: Reflux - . 6. Great Saphenous Vein: 6.1. Compressibility - Fully compressible: Thrombus - None: Flow - Phasic: Augmentation - Normal: Reflux - None. OTHER FINDINGS: Due to swelling in the calves, bilateral peroneal and posterior tibial vein were not visualized. IMPRESSION: Right: No evidence of deep or superficial vein thrombosis of the right lower extremity. Normal valve function noted of the right side. Left: No evidence of deep or superficial vein thrombosis of the left lower extremity. Normal valve function noted of the left side.
--- NOTE | 2018-11-13 14:59 | CP.PCM.PN ---
Subjective - Date & Time of Evaluation Date of Evaluation: 11/13/18 Time of Evaluation: 14:59 - Subjective Subjective: PATIENT SEEN AND EXAMINED AT THE BEDSIDE Objective - Vital Signs/Intake and Output Vital Signs (last 24 hours): Temp Pulse Resp BP Pulse Ox 97.4 F L 60 20 127/80 100 11/13/18 07:20 11/13/18 07:20 11/13/18 07:20 11/13/18 09:33 11/13/18 07:20 Intake and Output: 11/13/18 11/13/18 06:59 18:59 Intake Total 100 Balance 100 - Medications Medications: Current Medications Albuterol (Ventolin Hfa 90 Mcg/Actuation (8 G)) 2 puff IH Q6 PRN PRN Reason: Wheezing Albuterol Sulfate (Albuterol 0.083% Inhal Maria Ines (2.5 Mg/3 Ml) Ud) 2.5 mg INH RQ6 PRN PRN Reason: Shortness of Breath Allopurinol (Zyloprim) 100 mg PO DAILY [facility] Last Admin: 11/13/18 09:06 Dose: 100 mg Aspirin (Ecotrin) 81 mg PO DAILY [facility] Last Admin: 11/13/18 09:06 Dose: 81 mg Carvedilol (Coreg) 3.125 mg PO BID [facility] Last Admin: 11/13/18 09:08 Dose: 3.125 mg Enalapril Maleate (Vasotec) 10 mg PO DAILY [facility] Last Admin: 11/13/18 09:06 Dose: 10 mg Fluticasone/Vilanterol (Breo Ellipta 100-25 Mcg Inh) 1 puff INH RQ24 [facility] Furosemide (Lasix) 20 mg PO DAILY [facility] Last Admin: 11/13/18 09:33 Dose: 20 mg Heparin Sodium (Porcine) (Heparin) 5,000 units SC Q8 [facility] Last Admin: 11/13/18 14:17 Dose: 5,000 units Hydralazine HCl (Apresoline) 25 mg PO Q8 [facility] Last Admin: 11/13/18 14:17 Dose: 25 mg Insulin Human Regular (Novolin R) 0 unit SC ACHS [facility]; Protocol Last Admin: 11/13/18 12:30 Dose: Not Given Methadone HCl (Methadone) 30 mg PO DAILY [facility] Last Admin: 11/13/18 09:10 Dose: 30 mg Methadone HCl (Methadone) 5 mg PO DAILY [facility] Last Admin: 11/13/18 09:11 Dose: 5 mg Methotrexate (Methotrexate) 7.5 mg PO QWK [facility] Last Admin: 11/12/18 11:05 Dose: 7.5 mg Pantoprazole Sodium (Protonix Ec Tab) 40 mg PO DAILY [facility] Last Admin: 11/13/18 09:06 Dose: 40 mg Prednisone (Prednisone Tab) 5 mg PO DAILY [facility] Prednisone (Prednisone Tab) 40 mg PO DAILY [facility] Last Admin: 11/13/18 09:06 Dose: 40 mg Sitagliptin Phosphate (Januvia) 25 mg PO DAILY [facility] Last Admin: 11/13/18 09:08 Dose: 25 mg - Labs Labs: 11/11/18 17:05 11/11/18 17:05 Assessment and Plan - Assessment and Plan (Free Text) Assessment: FOLLOW UP WITH DR IGNACIO IN HIS OFFICE -----CALL FOR APPOINTMENT FOLLOW UP WITH DR BOSE IN HIS OFFICE -----CALL FOR APPOINTMENT CONTINUE HOME MEDICATION ACTIVITY TOLERATED CALL DR IGNACIO OR GO TO THE EMERGECY ROOM IF SYMPTOM RETURN OR WORSENING
[2018-11-13 15:44] VITALS: BP 111/71; TEMP 97.6; O2SAT 96
--- NOTE | 2018-11-13 21:36 | CP.PCM.DIS ---
Provider - Provider Date of Admission: 11/11/18 18:01 Attending physician: Albaro Drew MD Consults: 11/11/18 18:44 Cardiology Consult Routine Comment: Consulting Provider: Miguel Oscar Consulting Physician: Miguel Oscar Reason for Consult: chest pain 11/11/18 18:49 Nephrology Consult Routine Comment: Consulting Provider: Abner Vick Consulting Physician: Abner Vick Reason for Consult: ckd Hospital Course - Lab Results Lab Results: Most Recent Lab Values WBC 9.4 K/uL (4.8-10.8) 11/11/18 17:05 RBC 3.49 Mil/uL (4.40-5.90) L 11/11/18 17:05 Hgb 9.6 g/dL (12.0-18.0) L 11/11/18 17:05 Hct 29.8 % (35.0-51.0) L 11/11/18 17:05 MCV 85.5 fL (80.0-94.0) D 11/11/18 17:05 MCH 27.4 pg (27.0-31.0) 11/11/18 17:05 MCHC 32.0 g/dL (33.0-37.0) L 11/11/18 17:05 RDW 17.3 % (11.5-14.5) H 11/11/18 17:05 Plt Count 169 K/uL (130-400) 11/11/18 17:05 MPV 6.8 fL (7.2-11.7) L 11/11/18 17:05 Neut % (Auto) 88.5 % (50.0-75.0) H 11/11/18 17:05 Lymph % (Auto) 5.3 % (20.0-40.0) L 11/11/18 17:05 [place] % (Auto) 5.8 % (0.0-10.0) 11/11/18 17:05 Eos % (Auto) 0.2 % (0.0-4.0) 11/11/18 17:05 Baso % (Auto) 0.2 % (0.0-2.0) 11/11/18 17:05 Neut # (Auto) 8.3 K/uL (1.8-7.0) H 11/11/18 17:05 Lymph # (Auto) 0.5 K/uL (1.0-4.3) L 11/11/18 17:05 [place] # (Auto) 0.5 K/uL (0.0-0.8) 11/11/18 17:05 Eos # (Auto) 0.0 K/uL (0.0-0.7) 11/11/18 17:05 Baso # (Auto) 0.0 K/uL (0.0-0.2) 11/11/18 17:05 Neutrophils % (Manual) 91 % (50-75) H 11/11/18 17:05 Band Neutrophils % 2 % (0-2) 11/11/18 17:05 Lymphocytes % (Manual) 5 % (20-40) L 11/11/18 17:05 Monocytes % (Manual) 2 % (0-10) 11/11/18 17:05 Platelet Estimate Normal (NORMAL) 11/11/18 17:05 Anisocytosis (manual) Slight 11/11/18 17:05 Sodium 138 mmol/L (132-148) 11/11/18 17:05 Potassium 5.3 mmol/L (3.6-5.2) H 11/11/18 17:05 Chloride 102 mmol/L (98-107) 11/11/18 17:05 Carbon Dioxide 28 mmol/L (22-30) 11/11/18 17:05 Anion Gap 13 (10-20) 11/11/18 17:05 BUN 49 mg/dL (9-20) H 11/11/18 17:05 Creatinine 2.7 mg/dL (0.8-1.5) H 11/11/18 17:05 Est GFR ( Amer) 29 11/11/18 17:05 Est GFR (Non-Af Amer) 24 11/11/18 17:05 POC Glucose (mg/dL) 156 mg/dL (65-110) H 11/13/18 16:16 Random Glucose 109 mg/dL (75-110) 11/11/18 17:05 Calcium 8.8 mg/dl (8.6-10.4) 11/11/18 17:05 Phosphorus 4.3 mg/dL (2.5-4.5) 11/11/18 23:20 Total Bilirubin 0.4 mg/dL (0.2-1.3) 11/11/18 17:05 AST 15 U/L (17-59) L D 11/11/18 17:05 ALT 12 U/L (21-72) L D 11/11/18 17:05 Alkaline Phosphatase 95 U/L (38-126) 11/11/18 17:05 Total Creatine Kinase 99 U/L (55-170) 11/12/18 05:21 CK-MB (Mass) 1.85 ng/mL (0.0-3.38) 11/12/18 05:21 Troponin I 0.0200 ng/mL (0.00-0.120) 11/12/18 05:21 NT-Pro-B Natriuret Pep 2280 pg/mL (0-900) H 11/11/18 17:05 Total Protein 7.1 g/dL (6.3-8.3) 11/11/18 17:05 Albumin 3.7 g/dL (3.5-5.0) 11/11/18 17:05 Globulin 3.4 gm/dL (2.2-3.9) 11/11/18 17:05 Albumin/Globulin Ratio 1.1 (1.0-2.1) 11/11/18 17:05 Lipase 88 U/L (23-300) 11/11/18 17:05 PTH Intact Whole Molec 360 pg/mL (14-64) H 11/12/18 05:21 Urine Color Yellow (YELLOW) 11/11/18 18:56 Urine Clarity Clear (Clear) 11/11/18 18:56 Urine pH 7.0 (5.0-8.0) 11/11/18 18:56 Ur Specific Branch 1.011 (1.003-1.030) 11/11/18 18:56 Urine Protein 2+ mg/dL (NEGATIVE) H 11/11/18 18:56 Urine Glucose (UA) Normal mg/dL (Normal) 11/11/18 18:56 Urine Ketones Negative mg/dL (NEGATIVE) 11/11/18 18:56 Urine Blood Negative (NEGATIVE) 11/11/18 18:56 Urine Nitrate Negative (NEGATIVE) 11/11/18 18:56 Urine Bilirubin Negative (NEGATIVE) 11/11/18 18:56 Urine Urobilinogen Normal mg/dL (0.2-1.0) 11/11/18 18:56 Ur Leukocyte Esterase Neg Parrish/uL (Negative) 11/11/18 18:56 Urine WBC (Auto) 1 /hpf (0-5) 11/11/18 18:56 Urine RBC (Auto) < 1 /hpf (0-3) 11/11/18 18:56 Ur Squamous Epith Cells < 1 /hpf (0-5) 11/11/18 18:56 Urine Bacteria Rare (<OCC) 11/11/18 18:56 Ur Random Creatinine 65 mg/dL (20-320) 11/12/18 03:05 U Random Total Protein 2262 mg/g creat (22-128) H 11/12/18 03:05 Urine Opiates Screen Negative (NEGATIVE) 11/11/18 18:56 Urine Methadone Screen Positive (NEGATIVE) H 11/11/18 18:56 Ur Barbiturates Screen Negative (NEGATIVE) 11/11/18 18:56 Ur Phencyclidine Scrn Negative (NEGATIVE) 11/11/18 18:56 Ur Amphetamines Screen Negative (NEGATIVE) 11/11/18 18:56 U Benzodiazepines Scrn Negative (NEGATIVE) 11/11/18 18:56 U Oth Cocaine Metabols Negative (NEGATIVE) 11/11/18 18:56 U Cannabinoids Screen Negative (NEGATIVE) 11/11/18 18:56 Complement C3 91.0 mg/dL (88.0-165.0) 11/11/18 23:20 Complement C4 31.8 mg/dL (14.0-44.0) 11/11/18 23:20 Hepatitis A IgM Ab Reactive (NEGATIVE) 11/11/18 23:20 Hepatitis A Ab Total Antibody positive (NEGATIVE) 11/11/18 23:20 Hep Bs Antigen Negative (NEGATIVE) 11/11/18 23:20 Hep Bs Antibody, Quant <5 mIU/mL (>or=10) L 11/12/18 05:21 Hep B Core IgM Ab Negative (NEGATIVE) 11/11/18 23:20 Hepatitis C Antibody Reactive (NEGATIVE) 11/11/18 23:20 Discharge Plan - Follow Up Plan Condition: STABLE Disposition: HOME/ ROUTINE Instructions: Heart Healthy Diet, Diabetes Exchange Diet, Diabetes Diet , Chest Pain (DC) Additional Instructions: FOLLOW UP WITH DR DREW IN HIS OFFICE -----CALL FOR APPOINTMENT FOLLOW UP WITH DR BOSE IN HIS OFFICE -----CALL FOR APPOINTMENT CONTINUE HOME MEDICATION ACTIVITY TOLERATED CALL DR DREW OR GO TO THE EMERGECY ROOM IF SYMPTOM RETURN OR WORSENING Referrals: Benitez Bose MD [Staff Provider] - Albaro Drew MD [Staff Provider] -
--- NOTE | 2018-11-13 21:57 | PN ---
DATE: 11/13/2018 SUBJECTIVE: The patient is still experiencing arthritic pain. He denies retrosternal chest pain. PHYSICAL EXAMINATION: VITAL SIGNS: Blood pressure 111/71, heart rate 60, temperature 97.6, respirations 20. HEENT: Normocephalic. CHEST: Clear. HEART: S1, S2 regular. EXTREMITIES: 2+ pitting edema. Venous Doppler of the lower extremity. No evidence of DVT. ASSESSMENT: 1. Atypical chest pain, myocardial infarction is ruled out. 2. History of coronary stenting few years ago. 3. Rheumatoid arthritis. 4. Chronic renal insufficiency. RECOMMENDATIONS: albuterol inhaler, hydralazine 25 mg every 8 hours, Coreg 3.125 mg twice a day, subcutaneous heparin 5000 units every 8 hours, Lasix 20 mg once a day, methadone 30 mg once a day, methotrexate 7.5 mg weekly, prednisolone 40 mg once a day, Vasotec 10 mg once a day, Zyloprim 100 mg daily. I will review the echocardiographic study performed today. Miguel Oscar MD
--- NOTE | 2018-11-14 02:49 | PN ---
DATE: 11/13/2018LOCATION: The patient is located in room 569, bed B. REQUESTED BY: Albaro Drew MD REASON FOR FOLLOWUP: Chronic kidney disease, for further evaluation. HISTORY OF PRESENT ILLNESS: The patient is about 63-year-old elderly obese male with a history of longstanding hypertension, diabetes, asthma, status post right hip surgery, who was admitted with the chief complaints of cough, nonproductive, and also bilateral knee pains and also pain in both hands and also chest discomfort. The patient was ruled out for acute coronary syndrome by cardiac enzymes times three. The patient is feeling much better today. No shortness of breath. No pain. PHYSICAL EXAMINATION: VITAL SIGNS: As follows, blood pressure this morning 127/80, pulse 70, respirations 20, temperature 97.6, and saturation 96%. Height 5 feet 11 inches, weight is 250 pounds. GENERAL: Mr. Rojas is a 63-year-old obese male, well built, well nourished, not in acute distress. HEENT: Pupils normal, reactive to light and accommodation. Conjunctivae pink. Sclerae anicteric. Tongue is moist. Trachea is midline. LUNGS: Symmetric on both sides. Bilateral breath sounds present. Clear to auscultation. CARDIOVASCULAR SYSTEM: [place] at the fifth intercostal space and midclavicular line. S1, S2 audible. No murmur or gallop. ABDOMEN: Soft, tympanitic. No guarding. No rigidity. No hepatosplenomegaly. CENTRAL NERVOUS SYSTEM: The patient is alert, awake, oriented x3. Nonfocal neuro examination. Cranial nerves II through XII grossly intact. Sensory and motor system is within normal limits. EXTREMITIES: No cyanosis, no clubbing. The patient has 1 to 2+ edema in both lower extremities. CURRENT MEDICATIONS: Include as follows: Albuterol inhaler, hydralazine 25 mg p.o. every 8 hours, Breo Ellipta 1 puff every 24 hours, Coreg 3.125 mg p.o. b.i.d., Ecotrin 80 mg daily, subcu heparin 5000 units every 8 hours, Januvia 25 mg p.o. daily, Lasix 20 mg p.o. daily, methadone 35 mg p.o. daily, methotrexate 7.5 mg p.o. every weekly, prednisone 40 mg p.o. daily discontinued and then prednisone 5 mg p.o. daily from 11/15/2018, Protonix 40 mg p.o. daily, Vasotec 10 mg p.o. daily, albuterol inhaler 2 puffs every 6 hours p.r.n., and allopurinol 100 mg p.o. daily. LABORATORY DATA: Include as follows: AccuCheks 112, 134, and 156, and BETITO is pending and C3 is 91, C4 is of 31.8. Hepatitis B surface antibody is less than 5, surface antigen is negative, and core antibody is negative. Hep C antibody is reactive. Hepatitis C antibody total is positive, and urine random creatinine is 65 and urine random protein is 2262 mg per gram creatinine, which is about 226 mg per gram for 100 mg. Echocardiogram report is pending. ASSESSMENT AND PLAN: In summary, Mr. Rojas is a 63-year-old elderly obese male with a history of hypertension; diabetes; asthma; rheumatoid arthritis; who was admitted with cough, nonproductive; shortness of breath; chest discomfort; and pain in both hands and knees; increased BUN and creatinine. 1. Chronic renal failure, most likely chronic kidney disease. Rule out diabetic nephropathy versus hypertensive nephrosclerosis or combination, cannot rule out chronic glomerulonephritis. All the serology was done, and only hepatitis C is reactive, and hepatitis C viral RNA by PCR was requested and also pending urine protein electrophoresis. 2. Hypertension. Blood pressure is stable. 3. Diabetes. Sugars are under control. 4. Rheumatoid arthritis. Continue methotrexate and prednisone as per the scallop binder. The patient can be followed as an outpatient. We will follow with you. Thank you for allowing me to participate in your patient's care. Abner Vick MD
--- NOTE | 2018-11-14 04:47 | CARD ---
APPROVED REPORT Date of service: 11/13/2018 EXAM: Two-dimensional and M-mode echocardiogram with Doppler and color Doppler. Other Information Quality : GoodRhythm : INDICATION Congestive Heart Failure RISK FACTORS Hypertension Diabetes 2D DIMENSIONS IVSd1.2 (0.7-1.1cm)LVDd5.5 (3.9-5.9cm) PWd1.3 (0.7-1.1cm)LA [id number] (18-58mL) LVDs3.5 (2.5-4.0cm)FS (%) 36.1 % LVEF (%)65.2 (>50%)LVEF (Crawford's)59.94 % M-Mode DIMENSIONS Left Atrium (MM)5.34 (2.5-4.0cm)IVSd1.48 (0.7-1.1cm) Aortic Root4.54 (2.2-3.7cm)LVDd5.69 (4.0-5.6cm) Aortic Cusp Exc.2.84 (1.5-2.0cm)PWd1.27 (0.7-1.1cm) FS (%) 44 %LVDs3.22 (2.0-3.8cm) LVEF (%)74 (>50%) Aortic Valve AI P 1/2 [id number] Mitral Valve MV E Anpeeurc37.7cm/sMV A Uwbovbxf03.2cm/sE/A ratio1.0 TDI Lateral E' Peak V9.00cm/sMedial E' Peak V4.74cm/sE/Lateral E'9.0 E/Medial E'17.0 LEFT VENTRICLE The left ventricle is normal size. There is mild concentric left ventricular hypertrophy. Left ventricle systolic function is normal. The Ejection Fraction is 55-60%. There is normal LV segmental wall motion. The left ventricular diastolic function is normal. RIGHT VENTRICLE The right ventricle is normal size. There is normal right ventricular wall thickness. The right ventricular systolic function is normal. ATRIA The left atrium is mildly dilated. The right atrium size is normal. The interatrial septum is intact with no evidence for an atrial septal defect. AORTIC VALVE The aortic valve is probably bicuspid. There is mild to moderate aortic regurgitation. There is no aortic valvular stenosis. MITRAL VALVE The mitral valve is normal in structure. There is no evidence of mitral valve prolapse. There is no mitral valve stenosis. Mitral regurgitation is mild. TRICUSPID VALVE The tricuspid valve is normal in structure. There is no tricuspid valve regurgitation noted. There is no tricuspid valve prolapse or vegetation. There is no tricuspid valve stenosis. PULMONIC VALVE The pulmonic valve is not well visualized. There is no pulmonic valvular regurgitation. GREAT VESSELS The aortic root is normal in size. PERICARDIAL EFFUSION There is no significant pericardial effusion. <Conclusion> Left ventricle systolic function is normal. The Ejection Fraction is 55-60%. There is mild to moderate aortic regurgitation. Mitral regurgitation is mild. There is no tricuspid valve regurgitation noted. There is no pulmonic valvular regurgitation.
--- NOTE | 2018-11-14 08:49 | DS ---
DISCHARGE DIAGNOSES: Noncoronary chest pain, chronic kidney disease, not on hemodialysis, type 2 diabetes, morbid obesity, exacerbation of rheumatoid arthritis. HISTORY OF PRESENT ILLNESS: This is 63-year-old male with history of opioid dependence, on metasone, hypertension, hyperlipidemia, chronic kidney disease, type 2 diabetes arthritis. He is compliant with diet and medication. He is chronically sick with history of joint pain, difficulty walking, generalized weakness. He came in because of chest pain, right hand swelling, pain, redness. The patient was found to have exacerbation of rheumatoid arthritis, the patient underwent prednisone treatment. He did well. The patient's cardiac enzymes x3 are negative. He had workup done in the past which has been essentially benign. The patient is for discharge. CONDITION UPON DISCHARGE: Stable. PHYSICAL EXAMINATION: VITAL SIGNS: Blood pressure 111/71, pulse 60, respiratory rate 20, temperature 97.6. LUNGS: Clear. CARDIOVASCULAR SYSTEM: S1, S2 regular. ABDOMEN: Soft, nontender. Bowel sounds are positive. ASSESSMENT: As above. The patient is discharged. The labs have been reviewed. Seen and examined. Albaro Drew MD
== END 2018-11-13 18:42 | disposition home or self-care (01) ==
LOC: C.ER 14:53 → C.9E 18:01 → C.5S 11-12 07:00
PROVIDERS: ADMIT Internal Medicine; ATTEND Internal Medicine
DX: R07.9 Chest pain, unspecified (principal); E11.22 Type 2 diabetes mellitus with diabetic chronic kidney disease; I12.9 Hypertensive chronic kidney disease with stage 1 through stage 4 chronic kidney disease, or unspecified chronic kidney disease; J45.909 Unspecified asthma, uncomplicated; N18.4 Chronic kidney disease, stage 4 (severe); B19.20 Unspecified viral hepatitis C without hepatic coma; M06.9 Rheumatoid arthritis, unspecified; D64.9 Anemia, unspecified; E66.9 Obesity, unspecified; E78.5 Hyperlipidemia, unspecified; F11.20 Opioid dependence, uncomplicated; I25.10 Atherosclerotic heart disease of native coronary artery without angina pectoris; K21.9 Gastro-esophageal reflux disease without esophagitis; Z87.442 Personal history of urinary calculi; Z95.5 Presence of coronary angioplasty implant and graft
CPT/HCPCS: 71046; 76770; 80053; 80074; 80324; 80345; 80346; 80349; 80353; 80358; 80361; 81001; 82570; 82948; 83520; 83690; 83880; 83970; 83992; 84100; 84156; 84166; 84484; 85025; 86039; 86160; 86317; 86708; 86803; 93005; 93306; 93970; 96372; 97162; 97530; 99285; G0378; G8978; G8979; J1644; J2930; J8610